=== PATIENT | male | born 1950 | race Caucasian/White ===

== ENCOUNTER 2016-05-07 11:31 | Emergency (ER) ==
--- NOTE | 2016-05-07 12:41 | PROVIDER DOCUMENTATION ---
HPI-Neurological Disorder - General Chief Complaint: General Adult Stated Complaint: FINGERS DRAWING UP Time Seen by Provider: 05/07/16 12:23 Source: patient Allergies/Adverse Reactions: Patient Allergies Allergy/AdvReac Type Severity Reaction Status Date / Time Penicillins AdvReac HIVES Verified 05/07/16 11:56 Home Medications: Home Medication List Medication Instructions Recorded Confirmed Last Taken Type Phenytoin [Dilantin] 400 mg PO DAILY 05/07/16 05/07/16 Unknown History - History of Present Illness-Neuro Nature of Presenting Problem: Pt is 65 y/o M presents to the ED with L hand drawing up. Pt denies injury or trauma. Pt states L hand will draw up intermittently 3 to 4 times a day. Pt states being on dialysis 4 months ago but does not know why he was told to stop. Headache Location: denies: frontal, temporal, occipital, parietal, global Severity: reports: mild Onset/Duration: reports: other (1 month) Timing: reports: still present, intermittent Context: reports: other (L hand drawing up) Character of Altered Mental Status: reports: N/A Any recent trauma/injury?: reports: none New weakness or altered sensation location:: reports: LUE (L hand drawing up) Gait Baseline: walks without assistance Associated Symptoms: reports: denies symptoms Similar Symptoms Previously?: Yes Recently seen or treated by another doctor?: No Review of Systems - Adult - REVIEW OF SYSTEMS - ADULT Constitutional: reports: no symptoms reported Eyes: reports: no symptoms reported Ears, Nose, Mouth & Throat: reports: no symptoms reported Cardiovascular: reports: no symptoms reported Respiratory: reports: no symptoms reported Gastrointestinal: reports: no symptoms reported Genitourinary: reports: no symptoms reported Musculoskeletal: reports: no symptoms reported Integumentary: reports: no symptoms reported Neurological: reports: no symptoms reported, other (L hand drawing up). denies : ataxia, dizziness/vertigo, headache/migraines, loss of balance, numbness, paresthesia, seizure, slurred speech, syncope, tremors Psychiatric: reports: no symptoms reported Endocrine: reports: no symptoms reported Hematologic/Lymphatic: reports: no symptoms reported Allergic/Immunologic: reports: no symptoms reported All Other Systems: Reviewed and Negative Past History - Adult - PAST MEDICAL HISTORY-ADULT Review of Records: reports: Nursing Assessment Review, Medications Reviewed, Social history reviewed & non-contributory. Major Childhood Illnesses: reports: denies history Cardiovascular: reports: HTN Respiratory: reports: denies history Gastrointestinal: reports: denies history Obstetrical/Gynecological: reports: denies history Genitourinary: reports: denies history Musculoskeletal: reports: denies history Neurological: reports: Seizures/Epilepsy Endocrine/Immune: reports: denies history Other Conditions: reports: denies history - PRIOR SURGERIES/PROCEDURES Surgical/Procedure History: reports: reviewed, not pertinent - IMMUNIZATION STATUS Childhood Immunizations: See Nurse Assessment Flu Vaccine: See Nurse Assessment - FAMILY HISTORY Family History: reviewed, not pertinent - SOCIAL HISTORY Smoking: denies Substance Use: denies Living Situation: family Physical Exam- Neurological - Physical Exam-Neuro Initial Vital Signs Reviewed: Yes General Appearance: appears well, alert, no apparent distress Eye Exam: bilateral eye: normal inspection, PERRL, EOMI HENMT: normocephalic/atraumatic, moist mucous membranes, normal ENT inspection, TMs normal, pharynx normal Head Injury: no evidence of injury Neck: non-tender, full range of motion, supple, normal inspection Respiratory: chest non-tender, lungs clear, normal breath sounds, no pleuratic chest pain, no respiratory distress, no accessory muscle use Cardiovascular: normal peripheral pulses, regular rate, rhythm, no edema, no gallop, no JVD, no murmur Abdominal Exam: normal bowel sounds, non tender, soft, no organomegaly, no pulsatile mass Lymphatic: no adenopathy Extremity: normal range of motion, non-tender, normal gait, normal inspection, no pedal edema, no calf tenderness, 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 Exam: normal hearing, normal speech, PERRL Coordination/Gait: normal finger to nose, normal gait Motor/Sensory: no motor deficit, no sensory deficit, no pronator drift Neurologic: grossly normal Integumentary: normal color, normal turgor, warm/dry Psych/Mental Status: normal mood/affect, oriented x 3 Progress - PLAN OF CARE/RESULTS Progress/Plan/Lab Results: Orders Category Date Time Status HEAD W/O CONTRAST [CT] Stat Exams 05/07/16 12:34 Ordered CBC WITH ELECTRONIC DIFF [HEME] Stat Lab 05/07/16 12:34 Ordered CMP [COMPREHENSIVE METABOLIC PANEL] [CHEM] Stat Lab 05/07/16 12:34 Ordered Vital Signs - 24 hr 05/07/16 11:51 Temperature 98 F Pulse Rate 65 Respiratory 18 Rate Blood Pressure 149/78 O2 Sat by Pulse 100 Oximetry Laboratory Tests 05/07/16 05/07/16 12:50 12:50 WBC 6.87 RBC 2.91 L Hgb 8.0 L Hct 24.6 L MCV 84.5 MCH 27.5 MCHC 32.5 L RDW Std Deviation 14.5 Plt Count 305 MPV 9.6 Immature Gran % (Auto) 0.3 Neut % (Auto) 66.4 Lymph % (Auto) 21.0 [place] % (Auto) 8.9 Eos % (Auto) 3.1 Baso % (Auto) 0.3 Immature Gran # (Auto) 0.02 Neut # (Auto) 4.57 Lymph # (Auto) 1.44 [place] # (Auto) 0.61 H Eos # (Auto) 0.21 Baso # (Auto) 0.02 Sodium 134 L Potassium 5.7 H Chloride 102 Carbon Dioxide 10 L Anion Gap 22 BUN 147 H Creatinine 9.3 H Estimated GFR/1.73 m2 6 BUN/Creatinine Ratio 14 Glucose 76 Calculated Osmolality 310 Calcium 6.4 L* Total Bilirubin 0.30 AST 10 ALT 10 Alkaline Phosphatase 181 H Total Protein 7.0 Albumin 3.9 Globulin 3.0 Albumin/Globulin Ratio 1.0 - CT/MRI 1 CT Study: Head Impression: Normal CT Results: no acute disease - CONSULTS/PCP/HOSPITALIST Notification #1 *Consult/PCP/Hospitalist*: Dr. Aquino Time Discussed: 14:37 (Dr. Aquino states consult with Dr. Rosales ) Reason/Comments: Dr. Heredia consulted with Dr. Aquino about Pt Consult Disposition: other #2 Consult: Dr. Rosales's nurse Time Discussed: 14:42 (Nurse states Pt took himself off of dialysis. ) Reason/Comments: Dr. Heredia consulted with Dr. Rosales's nurse about Pt Consult Disposition: other #3 Consult: Dr. Aquino Time Discussed: 14:48 (Dr. Aquino accepted admit ) Reason/Comments: Dr. Heredia consulted with Dr. Aquino about admit of Pt Consult Disposition: Admit Departure - Departure Time of Disposition Order: 13:56 DIAGNOSIS: Renal failure Disposition: AGAINST MEDICAL ADVICE 07 Certified Medical Emergency: Emergent Condition: Stable Additional Instructions: ED Follow Up Instructions: You have been treated by a care provider in the Emergency Department. These instructions are being provided to you so you can have an understanding of how to care for yourself upon discharge. Upon discharge from the Emergency Department, you are responsible for making arrangements for follow-up care by a physician of your choice. Take all prescribed medications as directed. Return to the Emergency Department immediately for any new or worsening symptoms. You may call the Physician Referral phone number at [phone] to obtain a list of Physicians who are taking new patients. Referrals: Nico Marmolejo MD [Primary Care Provider] - Attestation - Scribe Verification/Attestation Scribe:: Marion Farias Acting as Scribe for:: Osmel Heredia Scribe documention review:: This chart was documented by a scribe and accurately reflects the service the provider performed and the decisions made by the provider.
[2016-05-07 12:55] LABS: MANUAL DIFF NEEDED? NO
[2016-05-07 13:05] LABS: BASO% 0.3 % (0.0-0.8); EOS# 0.21 X1000 (0.0-0.7); EOS% 3.1 % (0.0-10.0); HEMATOCRIT 24.6 % (42.0-52.0); IMM GRAN# 0.02 X1000 (0.0-0.04); IMM GRAN% 0.3 % (0.0-0.5); LYMPH# 1.44 X1000 (1.2-3.4); MCH 27.5 PG (27-31); MCHC 32.5 g/dL (33-37); MCV 84.5 FL (81-99); MONO# 0.61 X1000 (0.11-0.59); MONO% 8.9 % (1.7-9.3); MPV 9.6 FL (7.4-10.4); NEUT% 66.4 % (42.2-75.2); PLT 305 X1000 (130-400); RBC 2.91 XMIL (4.7-6.1)
[2016-05-07 13:16] LABS: ALBUMIN 3.9 g/dL (3.5-5.0); POTASSIUM 5.7 mmol/L (3.5-5.1); TOTAL BILIRUBIN 0.3 mg/dL (0.20-1.00)
[2016-05-07 13:17] LABS: CALCIUM 6.4 mg/dL (8.8-10.2)
--- NOTE | 2016-05-07 13:22 | Diag Imaging Result Document ---
PROCEDURE NAME: HEAD W/O CONTRAST - 05/07/[address]: A CT dose reduction protocol was used. COMPARISON: None. FINDINGS: The ventricles and sulci are normal in size and contour. No intracranial mass or hemorrhage. There is some mild periventricular white matter chronic microvascular disease. The skull is intact. The sinuses, mastoids, and middle ears are clear. IMPRESSION: Mild cerebral chronic microvascular disease. Otherwise, no acute disease. [facility]
[2016-05-07 14:52] VITALS: BP 155/76
[2016-05-07] MEDS ORDERED: TYLENOL PO PRN (15:03)
[2016-05-07] MEDS ORDERED: ZOFRAN IV PRN (15:03)
[2016-05-07 15:33] LABS: CALCIUM 6.5 mg/dL (8.8-10.2)
== END 2016-05-07 15:31 | disposition left against medical advice (07) ==
LOC: P.ED 11:31
DX: N19 Unspecified kidney failure (principal); I10 Essential (primary) hypertension; R56.9 Unspecified convulsions; Z79.899 Other long term (current) drug therapy
CPT/HCPCS: 36415; 70450; 80053; 82310; 83970; 84100; 85025

== ENCOUNTER 2016-06-14 09:10 | Inpatient (IN) ==
[2016-06-14] MEDS ORDERED: NS 1,000 ML IV ONE (09:25)
--- NOTE | 2016-06-14 09:31 | EKG Report ---
Test Performed on : 06/14/2016 09:13:48 AM Test Reason : CHEST PAIN Blood Pressure : / mmHG Vent. Rate : 121 BPM Atrial Rate : 115 BPM P-R Int : 000 ms QRS Dur : 126 ms QT Int : 334 ms P-R-T Axes : 000 -24 070 degrees QTc Int : 474 ms Atrial fibrillation. with rapid ventricular response. Nonspecific intraventricular block Abnormal ECG When compared with ECG of 11-AUG-2011 23:22, Atrial fibrillation. has replaced Sinus rhythm. Vent. rate has increased BY 52 BPM Nonspecific T wave abnormality now evident in Lateral leads Unconfirmed Result
[2016-06-14 09:50] LABS: RBC 1.84 XMIL (4.7-6.1)
[2016-06-14 09:51] LABS: EOS# 0.02 X1000 (0.0-0.7); EOS% 0.1 % (0.0-10.0); HEMATOCRIT 15.4 % (42.0-52.0); IMM GRAN# 0.08 X1000 (0.0-0.04); IMM GRAN% 0.5 % (0.0-0.5); LYMPH# 0.94 X1000 (1.2-3.4); LYMPH% 5.5 % (20.5-51.1); MCH 26.6 PG (27-31); MCHC 31.8 g/dL (33-37); MCV 83.7 FL (81-99); MONO# 0.71 X1000 (0.11-0.59); MONO% 4.2 % (1.7-9.3); MPV 10.1 FL (7.4-10.4); NEUT% 89.7 % (42.2-75.2); PLT 304 X1000 (130-400)
[2016-06-14 09:52] LABS: HEMOGLOBIN 4.9 g/dL (14.0-18.0); MANUAL DIFF NEEDED? NO
[2016-06-14 10:16] LABS: PTT PL 54.9 Seconds (22.6-43.9)
[2016-06-14 10:17] LABS: INR 2.28 (0.86-1.15); PROTIME 25.2 Seconds (12.1-15.5)
[2016-06-14 10:17] LABS: ALBUMIN 1.7 g/dL (3.5-5.0); MAGNESIUM 1.2 mg/dL (1.5-2.7); POTASSIUM 4.2 mmol/L (3.5-5.1); TOTAL BILIRUBIN 0.2 mg/dL (0.20-1.00); TOTAL PROTEIN 3.9 g/dL (6.3-8.3)
[2016-06-14 10:18] LABS: CALCIUM 6.3 mg/dL (8.8-10.2)
[2016-06-14] MEDS ORDERED: TYLENOL PR ONE (10:37)
[2016-06-14] MEDS ORDERED: BENADRYL IV ONE (10:37)
[2016-06-14 10:53] LABS: AMYLASE 62 U/L (20-200); LIPASE 28 U/L (13-60)
--- NOTE | 2016-06-14 11:01 | PROVIDER DOCUMENTATION ---
This chart was entered by Alicia An Scribe, acting as scribe for Misbah Spencer MD. HPI-Chest Pain - General Chief Complaint: Chest Pain Stated Complaint: CHEST PAIN X 2 WEEKS Time Seen by Provider: 06/14/16 09:23 Source: patient Allergies/Adverse Reactions: Patient Allergies Allergy/AdvReac Type Severity Reaction Status Date / Time Penicillins AdvReac HIVES Verified 05/07/16 11:56 Home Medications: Home Medication List Medication Instructions Recorded Confirmed Last Taken Type Phenytoin [Dilantin] 400 mg PO DAILY 05/07/16 05/07/16 Unknown History - History of Present Illness-CP Nature of Presenting Problem: 65 yom presents to ed with complaint of chest pain. Family states he began vomiting,cough 2 weeks ago and could not get him to go to doctor. pt also complains of abd pain.denies fever Location: reports: central, abdomen Chest Pain Radiation: reports: no radiation Quality of Pain: reports: aching Severity in ED: mild Onset/Duration: other (2 weeks) Timing: still present Context/Activities at Onset: reports: none Modifying Factors: improves with: nothing Associated Symptoms: reports: abdominal pain Prior Chest Pain/Cardiac Workup: reports: no prior chest pain Similar Symptoms Previously?: No Recently Seen Here or By Another Healthcare Provider: No Review of Systems - Adult - REVIEW OF SYSTEMS - ADULT Constitutional: reports: fatique. denies: chills, fever Cardiovascular: reports: chest pain. denies: edema, syncope Respiratory: reports: cough, shortness of breath. denies: wheezing Gastrointestinal: reports: abdominal pain. denies: nausea, vomiting Past History - Adult - PAST MEDICAL HISTORY-ADULT Review of Records: reports: Old Records Reviewed, Nursing Assessment Review, Medications Reviewed Major Childhood Illnesses: reports: denies history Cardiovascular: reports: HTN Respiratory: reports: denies history Gastrointestinal: reports: denies history Obstetrical/Gynecological: reports: denies history Genitourinary: reports: denies history Musculoskeletal: reports: denies history Neurological: reports: Seizures/Epilepsy Endocrine/Immune: reports: Diabetes Other Conditions: reports: denies history - PRIOR SURGERIES/PROCEDURES Surgical/Procedure History: reports: reviewed, not pertinent - IMMUNIZATION STATUS Childhood Immunizations: See Nurse Assessment Flu Vaccine: See Nurse Assessment - FAMILY HISTORY Family History: reviewed, not pertinent - SOCIAL HISTORY Smoking: non-smoker Living Situation: family Physical Exam-General - PHYSICAL EXAM-ADULT Initial Vital Signs Reviewed: Yes - CONSTITUTIONAL General Appearance: appears well, alert, no apparent distress - EYES Eyes: PERRL/EOMI, pink conjunctivae, fundi clear, no AV nicking - HEAD, EARS, NOSE, MOUTH & THROAT HENMT: normocephalic/atraumatic, moist mucous membranes, normal ENT inspection, TMs normal, pharynx normal - NECK Neck: non-tender, full range of motion, supple, normal inspection - RESPIRATORY Respiratory: chest non-tender, lungs clear, normal breath sounds, no pleuratic chest pain, no respiratory distress, no accessory muscle use - CARDIOVASCULAR Cardiovascular: normal peripheral pulses, regular rate, rhythm, no edema, no gallop, no JVD, no murmur - GASTROINTESTINAL (ABDOMEN) Abdominal Exam: normal bowel sounds, non tender, soft, no organomegaly, no pulsatile mass - LYMPHATIC Lymphatic: no adenopathy - MUSCULOSKELETAL Back Exam: normal inspection, no CVA tenderness, no vertebral tenderness Extremity: normal range of motion, non-tender, normal gait, no pedal edema, no calf tenderness, normal capillary refill - SKIN Integumentary: normal color, normal turgor, warm/dry - 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, grossly normal, no motor/sensory deficits - PSYCHIATRIC Psych/Mental Status: normal mood/affect, normal thought content, normal thought process, oriented x 3 Progress - PLAN OF CARE/RESULTS Progress/Plan/Lab Results: Vital Signs - 8 hr 06/14/16 09:12 Temperature 97.2 F L Pulse Rate 111 H Respiratory Rate 32 H Blood Pressure 100/067 Laboratory Results - last 24 hr 06/14/16 06/14/16 06/14/16 06:33 09:33 09:33 WBC RBC Hgb Hct MCV MCH MCHC RDW Std Deviation Plt Count MPV Immature Gran % (Auto) Neut % (Auto) Lymph % (Auto) [place] % (Auto) Eos % (Auto) Baso % (Auto) Immature Gran # (Auto) Neut # (Auto) Lymph # (Auto) [place] # (Auto) Eos # (Auto) Baso # (Auto) Segmented Neutrophils PT 25.2 H INR 2.28 H APTT (Factor Assay) 54.9 H D-Dimer Sodium 130 L Potassium 4.2 Chloride 94 L Carbon Dioxide 4 L Anion Gap 32 BUN 115 H Creatinine 8.1 H Estimated GFR/1.73 m2 7 BUN/Creatinine Ratio 14 Glucose 114 H Calculated Osmolality 298 Calcium 6.3 L* Magnesium 1.2 L Total Bilirubin 0.20 AST 12 ALT 12 Alkaline Phosphatase 77 Creatine Kinase 76 Troponin T 0.033 Ljl-E-Nvjjqdghoaw Pept Total Protein 3.9 L Albumin 1.7 L Globulin 2.0 Albumin/Globulin Ratio 1.0 Amylase Lipase Total Phenytoin Blood Type Antibody Screen Crossmatch 06/14/16 06/14/16 06/14/16 09:33 09:33 09:33 WBC 16.96 H RBC 1.84 L Hgb 4.9 L* Hct 15.4 L MCV 83.7 MCH 26.6 L MCHC 31.8 L RDW Std Deviation 14.0 Plt Count 304 MPV 10.1 Immature Gran % (Auto) 0.5 Neut % (Auto) 89.7 H Lymph % (Auto) 5.5 L [place] % (Auto) 4.2 Eos % (Auto) 0.1 Baso % (Auto) 0.0 Immature Gran # (Auto) 0.08 H Neut # (Auto) 15.21 H Lymph # (Auto) 0.94 L [place] # (Auto) 0.71 H Eos # (Auto) 0.02 Baso # (Auto) 0.00 Segmented Neutrophils Not Reportable PT INR APTT (Factor Assay) D-Dimer Sodium Potassium Chloride Carbon Dioxide Anion Gap BUN Creatinine Estimated GFR/1.73 m2 BUN/Creatinine Ratio Glucose Calculated Osmolality Calcium Magnesium Total Bilirubin AST ALT Alkaline Phosphatase Creatine Kinase Troponin T Qve-S-Frstiuuogfz Pept 82545 H Total Protein Albumin Globulin Albumin/Globulin Ratio Amylase 62 Lipase 28 Total Phenytoin Blood Type Antibody Screen Crossmatch 06/14/16 06/14/16 06/14/16 09:33 09:33 09:53 WBC RBC Hgb Hct MCV MCH MCHC RDW Std Deviation Plt Count MPV Immature Gran % (Auto) Neut % (Auto) Lymph % (Auto) [place] % (Auto) Eos % (Auto) Baso % (Auto) Immature Gran # (Auto) Neut # (Auto) Lymph # (Auto) [place] # (Auto) Eos # (Auto) Baso # (Auto) Segmented Neutrophils PT INR APTT (Factor Assay) D-Dimer 6.76 H Sodium Potassium Chloride Carbon Dioxide Anion Gap BUN Creatinine Estimated GFR/1.73 m2 BUN/Creatinine Ratio Glucose Calculated Osmolality Calcium Magnesium Total Bilirubin AST ALT Alkaline Phosphatase Creatine Kinase Troponin T Axh-D-Wqohaehiziz Pept Total Protein Albumin Globulin Albumin/Globulin Ratio Amylase Lipase Total Phenytoin < 0.80 L Blood Type O POSITIVE Antibody Screen NEGATIVE Crossmatch See Detail Orders Category Date Time Status Cardiac Monitoring DIRECTED Care 06/14/16 09:20 Active Saline Loc NOW Care 06/14/16 09:20 Active CHEST-2 VIEWS [RAD] Stat Exams 06/14/16 09:20 Taken AMYLASE [CHEM] Stat Lab 06/14/16 09:33 Completed BLOOD CULTURE [BLDCUL] Stat Lab 06/14/16 09:25 Ordered CBC WITH ELECTRONIC DIFF [HEME] Stat Lab 06/14/16 09:33 Completed CK PROFILE [SP CHEM] Stat Lab 06/14/16 09:33 Completed COMPREHENSIVE METABOLIC PANEL [CHEM] Stat Lab 06/14/16 09:33 Completed D-DIMER PL [COAG] Stat Lab 06/14/16 09:53 Completed Dilantin [PHENYTOIN] [TDM] Stat Lab 06/14/16 09:33 Completed LIPASE [CHEM] Stat Lab 06/14/16 09:33 Completed MAGNESIUM [CHEM] Stat Lab 06/14/16 09:33 Completed PRBC [LRPC (RED CELLS)] [BBK] Stat Lab 06/14/16 09:33 Results PRO B-NATRIURETIC PEPTIDE Stat Lab 06/14/16 09:33 Completed [address]IME WITH INR PL [COAG] Stat Lab 06/14/16 06:[address] [COAG] Stat Lab 06/14/16 06:33 Completed Stool [C DIFF TOXIN PL] Stat Lab 06/14/16 09:56 Ordered TROPONIN T Stat Lab 06/14/16 09:33 Completed TYPE & SCREEN [BBK] Stat Lab 06/14/16 09:[address] W/POSS RFLX CULT [URINALYSIS] Stat Lab 06/14/16 09:25 Uncollected 0.9% Sodium Chloride Inj [Ns] 1,000 ml Med 06/14/16 09:25 Discontinued IV 999 mls/hr Acetaminophen [Tylenol] Med 06/14/16 10:37 Discontinued 650 mg AK NOW ONE Diphenhydramine [Benadryl] Med 06/14/16 10:37 Discontinued 25 mg IV NOW ONE EKG [EKG] Stat Ther 06/14/16 09:20 Draft Result Diagrams: 06/14/16 09:33 06/14/16 09:33 - REASSESSMENT Reassessment #1 Time Reassessed: 10:57 Status: unchanged (Pt has h/o RF, but refused dialysis. Saw Dr. Rosales before. Denies GI bleed, and no concerns for GI bleed regarding his anemia. Pt agreed to see Dr. Rosales again to discuss possible CANDELARIA.) - CONSULTS/PCP/HOSPITALIST Notification #1 *Consult/PCP/Hospitalist*: Dr. Bundy Time Discussed: 11:00 Reason/Comments: Will admit to Dr. Bundy Consult Disposition: Admit Departure - Departure Time of Disposition Decision: 10:59 DIAGNOSIS: Renal failure Anemia Qualifiers: Anemia type: unspecified type Qualified Code(s): D64.9 - Anemia, unspecified Disposition: ADMITTED INPATIENT 09 Certified Medical Emergency: Emergent Condition: Serious Referrals and Follow-Ups: None,PCP [Primary Care Provider] - - Critical Care Note Total Time (mins): 35 Critical Care Statement: This patient required my direct personal management to treat or rule out processes, the absence of which, could potentiallly result in sudden, clinically significant life or limb threatening deterioration. Attestation - Physician/ MAX Attestation Patient care was provided by Advanced Practice Provider:: Yes Advanced Practice Provider:: Misbah Spencer Advanced Practice Provider documentation review:: The Mid-level provider documentation, treatment plan and medical decision making was reviewed by the physician who agrees with all treatment and medical decision making by the P. This chart was documented by the indicated scribe, (Alicia An Scribe) and accurately reflects the services I performed and decisions made by me, Misbah Spencer MD, as attested by the provider's signature.
[2016-06-14] MEDS ORDERED: NS 500 ML ONE (11:25)
--- NOTE | 2016-06-14 11:43 | ED EKG INTERP ---
This chart was entered by Alicia An Scribe, acting as scribe for Misbah Spencer MD. EKG Interpretation - EKG Time of EKG reading by physician:: 09:13 EKG Read and Signed by:: Misbah Spencer EKG Interpretation (*Must complete 3 of following elements*): Abnormal Rate: 121 Rhythm: AFIB with rapid ventricular response Comments: nonspecific intraventricular block This chart was documented by the indicated scribe, (Alicia An Scribe) and accurately reflects the services I performed and decisions made by me, Misbah Spencer MD, as attested by the provider's signature.
--- NOTE | 2016-06-14 11:55 | Diag Imaging Result Document ---
PROCEDURE NAME: CHEST-2 VIEWS - 06/14/2016 CHEST X-RAY, 2 VIEWS: COMPARISON: None. FINDINGS: There is significant cardiomegaly. There is perhaps some pulmonary vascular congestion. No infiltrates or edema. There are trace pleural effusions. IMPRESSION: Cardiomegaly, pulmonary vascular congestion, trace effusions.
--- NOTE | 2016-06-14 13:42 | HISTORY AND PHYSICAL ---
CHIEF COMPLAINT: Pain all over. HISTORY OF PRESENT ILLNESS: Patient is a 65-year-old male who notes that he had been on hemodialysis in the past a couple of times. Has not taken dialysis in the last several months because he felt sick during one of the treatments and states that he has never gone back. Notes that he knows he is supposed to continue to stay on hemodialysis. He presents to the Emergency Department today noting that he feels terrible. He is hurting all over. States that he cannot get any relief, and therefore, he came to the hospital. Denies any bleeding in his stool or his urine. Denies any vomiting but states that he is nauseated. Notes that he is hurting all over, although is not able to delineate any particular place that is worse than the other. ALLERGIES: Penicillin. MEDICATIONS: Dilantin. PAST MEDICAL HISTORY: 1. Hemodialysis secondary to renal failure. 2. Anemia secondary to his renal failure. 3. Hypertension. 4. Epilepsy. 5. Diabetes. REVIEW OF SYSTEMS: Very difficult to obtain from Mr. Gupta. It does appear as though as he has had some chest pain although he now denies having chest pain. He states it is more epigastric area where he touches and nausea. Denies any fever or chills. Denies any urinary complications. Denies any diarrhea, constipation, melena. Denies any hematochezia. Denies headaches or blurred vision. States he has been tired, fatigued. He has not been feeling well. He has continued to decline overall. SOCIAL HISTORY: Patient lives at home. He does not smoke or drink. Dr. Marmolejo is his primary care physician. FAMILY HISTORY: Noncontributory. PHYSICAL EXAMINATION: VITAL SIGNS: Reviewed. Temperature 97.2, pulse 100 to 111, respiratory 32, blood pressure 100/67. GENERAL: Patient is awake, alert, male who is lying flat in the bed covered up with multiple blankets. Memory appears intact. Speech is somewhat slow and slightly slurred, although patient notes this is his baseline. HEENT: Normocephalic, atraumatic. NECK: Supple. CARDIOVASCULAR: Regular rate. CHEST: Relatively clear. Positive systolic ejection murmur 3/6. ABDOMEN: Soft, diffusely tender. No hepatosplenomegaly noted. No masses. EXTREMITIES: Moves all extremities. No edema. SKIN: No rashes, although he has multiple scars of various stages on his lower extremities that appear to be healing well. LABORATORY: Reviewed. D-dimer is 2.28, sodium 130, potassium 4.2, creatinine 8.6, magnesium 1.2, calcium 6. WBC is 16. Hemoglobin and hematocrit 4.9 and 15.4. ASSESSMENT: 1. Anemia of chronic kidney disease. Will type, cross, transfuse two units. 2. Chronic kidney disease. Patient likely will require further hemodialysis. 3. Hypocalcemia at 6.3, hypomagnesemia at 1.2. 4. Elevated D-dimer, likely secondary to his chronic kidney disease, although will check an ultrasound of his lower extremities. His INR currently is at 2. 5. Elevated BNP at 27,000. PLAN: Will admit patient to [facility] to allow Dr. Rosales's input. Will continue to follow. Further orders as needed. Will check an ultrasound of his lower extremities. He certainly will need Dr. Rosales's input regarding hemodialysis. Will replace his magnesium, start replacing his calcium. Will recheck. Transfuse two units and recheck this as well. Further orders as needed. cc: Eliot Bundy MD
[2016-06-14] MEDS ORDERED: MAGNESIUM SULFATE 2 GM/S.W.I. 2 GM/50 ML IVPB IV ONE (14:20)
[2016-06-14 14:55] LABS: ALLEN TEST YES; BLOOD TYPE ARTERIAL; DRAW SITE R RADIAL; METHB 1.3 % (0.0-1.5); O2(CT) 10.7 mL/dL (15.0-23.0); PO2(98.6) 123 mmHg (60-100); SAMPLE BLOOD; SAO2 100.7 % (95.0-100.0); THB 7.6 g/dL (11.5-17.4)
[2016-06-14 14:56] LABS: MODALITY CANNULA
[2016-06-14 14:58] LABS: PCO2(98.6) 19 mmHg (35-45); pH(98.6) 7.13 (7.35-7.45)
[2016-06-14] MEDS ORDERED: CALCIUM GLUCONATE 2 GM in NS 100 ML IV ONE (15:00)
[2016-06-14] MEDS ORDERED: TYLENOL PO PRN (16:19)
[2016-06-14] MEDS ORDERED: APRESOLINE IV PRN (16:22)
[2016-06-14] MEDS: MORPHINE IV PRN ×2 (17:02→21:12)
--- NOTE | 2016-06-14 19:44 | CONSULTATION ---
DATE OF CONSULTATION: 06/14/2016 CHIEF COMPLAINT: Pain all over. REASON FOR CONSULTATION: Acute kidney injury on previous ESRD, noncompliance, with severe anemia. CONSULTING PHYSICIAN: Eliot Bundy MD. HISTORY OF PRESENT ILLNESS: Mr. Gupta is a 65-year-old, white male who is known to our outpatient services, who has an AV fistula to the left upper forearm. He has been on dialysis multiple times and had taken himself off. He has not been to dialysis in approximately 4-6 months. Patient states that he is feeling sick. He started with chest pain, it is radiating up into his shoulders. He does ache all over. He has had nausea and occasional emesis. His hemoglobin on admission to the ER it was found to be 4.9, his creatinine is 8.6, with a BUN of 115. Patient states that he has not had any hematochezia, no hemoptysis, no melena. He denies any increased swelling, occasional shortness of breath, severe fatigue. PAST MEDICAL HISTORY: End-stage renal disease. Patient is due for hemodialysis and has not been compliant in going back for his treatments. He had a fistula to the left upper arm. He has anemia secondary to his ESRD, hypertension, epilepsy, diabetes mellitus type 2. He has a history of osteodystrophy secondary to chronic disease. PREVIOUS SURGICAL HISTORY: Left upper arm fistula. SOCIAL HISTORY: He is . He lives at home with his spouse. He states he does not drink or smoke. No illicit drug use. Dr. Marmolejo is his primary care physician. FAMILY HISTORY: Noncontributory with renal insufficiency. CURRENT ALLERGIES: To penicillin. HOME MEDICATIONS: Dilantin. REVIEW OF SYSTEMS: Review of systems x 10 with pertinent positives listed above in the HPI. MOST RECENT VITAL SIGNS: Temperature 97.9 degrees, blood pressure 158/88, heart rate 105, respirations are 24. He is on 2 L nasal cannula. Last recorded saturation 100% . He has had 350 in, he has had 0 recorded out. Patient states that he still urinates at home. LABS: Sodium of 130, potassium 4.2, chloride 94, CO2 4, BUN 115, creatinine 8.1 , glucose 114, calcium 6.3, albumin 1.7. He has a corrected calcium of 8.14. Magnesium 1.2, proBNP 27,154, amylase 62, lipase 28, white count 16.96, hemoglobin 4.9, hematocrit 15.4, platelet count 304,000, his PT is 25.2, with an INR of 2.28, PTT 54.9 with a D-dimer 6.76. ABGs on admission: pH 7.13, CO2 19, PO2 123, bicarbonate 8.6. He has a base excess of 21 with a lactate of 0.70 on 3 L nasal cannula. His Dilantin level is less than 0.80. PHYSICAL EXAMINATION: General: This is a 65-year-old white male. He appears chronically ill. He is in mild distress. He is shivering and states he is in chronic pain. Skin : Warm and dry. HEENT: Normocephalic, atraumatic. Conjunctiva is pale. He has TISH mostly constricted at this time. Neck: Supple. Trachea midline. No JVD. Cardiovascular: Regular rate and rhythm. He is tachycardic on the monitor. He has a systolic murmur present. No gallop. Lungs: Clear to auscultation anteriorly. Equal excursion on O2. Abdomen: Soft, nontender. Positive bowel sounds. Genitourinary: Not inspected. Patient has not voided at this time. Extremities: No edema. No clubbing or cyanosis. Multiple scars noted with different stages of healing. Neurological: He is alert and oriented x3. ASSESSMENT AND PLAN: 1. End-stage renal disease. The patient has been noncompliant in his dialysis treatment. He has not been there in several months for treatment. He is exhibiting some uremic symptoms. His fistula has a palpable thrill. We have spoken to the patient in regard to restarting his hemodialysis. He would like to talk to Dr. Rosales at this time. He is aware that he does need further hemodialysis. His states that she has tried to get him to go and he has refused. 2. Electrolytes. Patient has hypocalcemia and hypomagnesium though corrected calcium is in the 8 range. 3. Acid-base balance. The patient has severely metabolic acidosis secondary to #1. After his blood transfusions we will start him on a L of D5 W with 3 amps of sodium bicarbonate at 100 mL an hour for correction if patient is unwilling to start hemodialysis. 4. Elevated D-dimer more than likely secondary to his end-stage renal disease with noncompliance. INR is at 2. 5. Severe pain all over. Again this may be uremic symptoms with associated with his nausea. 6. Anemia. The patient is grossly anemic. They are giving him 2 units of packed red blood cells at this time with an evaluation post treatment. Seizure activity. Patient has a low level of Dilantin. This is being followed by the Primary Care team. I would like to thank you for allowing us to follow with this patient. Sincerely, Data reviewed, discussed with Fuad Castro on 06/14/16. I agree with the above assessment and plan of care. rg Dictated by RACHID Pierre for Son Rosales MD cc: RACHID Pierre MD [facility]
[2016-06-14 20:19] LABS: ACETAMINOPHEN < 1.2 ug/mL (10-30); HDL 21 mg/dL (35-55); LDL 49 mg/dL; TRIGLYCERIDES 91 mg/dL (39-160); VLDL 18 mg/dL
[2016-06-14 20:28] LABS: FREE T4 0.95 ng/dL (0.93-1.70)
[2016-06-14 20:45] LABS: ACETONE SERUM SMALL (NEGATIVE)
[2016-06-14] MEDS: COLACE PO SCH ×2 (21:41→23:35)
[2016-06-14] MEDS: HUMULIN R SUBQ SCH (21:41)
[2016-06-14 23:32] LABS: HEMATOCRIT 29.7 % (42.0-52.0); HEMOGLOBIN 10.2 g/dL (14.0-18.0); MCH 28.4 PG (27-31); MCHC 34.3 g/dL (33-37); MCV 82.7 FL (81-99); MPV 11.3 FL (7.4-10.4); RBC 3.59 XMIL (4.7-6.1)
[2016-06-15] MEDS: ZOFRAN IV PRN ×3 (00:28→22:35)
[2016-06-15] MEDS: MORPHINE IV PRN ×2 (01:37→07:48)
[2016-06-15] MEDS: SODIUM BICARBONATE 8.4% 150 MEQ in D5W 1,000 ML IV SCH ×4 (05:39→22:35)
[2016-06-15] MEDS: HUMULIN R SUBQ SCH ×4 (06:26→22:35)
[2016-06-15] MEDS ORDERED: TIGHT: 0.2 ML/HR MISC PRN (06:57)
[2016-06-15] MEDS ORDERED: NS 2,000 ML MISC PRN (06:57)
[2016-06-15] MEDS ORDERED: HEPARIN IV PRN (06:57)
[2016-06-15 07:26] LABS: MCH 28.1 PG (27-31); MCHC 33.3 g/dL (33-37); MCV 84.4 FL (81-99); MPV 11.1 FL (7.4-10.4); RBC 3.91 XMIL (4.7-6.1)
[2016-06-15 07:49] LABS: ALBUMIN 2.9 g/dL (3.5-5.0); CALCIUM 7.5 mg/dL (8.8-10.2); MAGNESIUM 2.6 mg/dL (1.5-2.7); TOTAL BILIRUBIN 0.48 mg/dL (0.20-1.00); TOTAL PROTEIN 6.9 g/dL (6.3-8.3)
[2016-06-15 08:06] LABS: POTASSIUM 6.3 mmol/L (3.5-5.1)
--- NOTE | 2016-06-15 09:45 | PROGRESS NOTE ---
DATE: 06/15/2016 SUBJECTIVE: He is feeling better today. No, of breath, nausea or vomiting. OBJECTIVE: Vital Signs: Blood pressure 161/81, heart rate 93, respirations 21, afebrile. Generally: He is a middle-aged man, chronically ill, in no distress. Skin: Warm and dry with several vesicles on the neck and on the feet. The ones on the feet seem older than the ones on the neck. They have an erythematous base and purulent pustule. Conjunctivae are pink. Pupils are equal. Oropharynx is moist. Neck: Neck veins are not distended. Heart: Regular. No rubs. Lungs: Have equal breath sounds. No crackles. Abdomen: Soft, nontender. Bowel sounds present. Extremities: Have no edema, clubbing, or cyanosis. LABORATORY DATA: Sodium 134, potassium 6.3, chloride 91, bicarbonate 6, BUN 199, creatinine 12.6. Hemoglobin 11.0. IMPRESSION: 1. Uremia. He states he is ready to restart dialysis. He has taken himself off dialysis twice in the past. He complains of cramps and other constitutional symptoms during his treatment. But he does state that he wants now to restart. We will begin with a short 2-hour treatment with low blood flow of 200-250 mL/minute and dialyze him today and repeat tomorrow. 2. Hyperkalemia; 2K bath. 3. Metabolic acidosis; 37 bicarbonate today. 4. Profound anemia. Better following transfusion. We will dose with erythropoietin. cc: Son Rosales MD
[2016-06-15] MEDS: EPOGEN SUBQ SCH (10:02)
--- NOTE | 2016-06-15 10:02 | Extremity Venous Study ---
PROCEDURE NAME: Venous U/S Bilateral Legs - 06/14/2016 STUDY: Bilateral lower extremity venous duplex and color flow imaging. EQUIPMENT: [employer] Vivid E9 ultrasound system with a 9LD transducer. INDICATION: Elevated D-dimer. REQUESTING PHYSICIAN: Eliot Bundy MD ELECTRONICS TECHNOLOGY INSTRUCTOR: Kathya. FINDINGS: Images of the bilateral lower extremity venous system were obtained in both sagittal and transverse planes. Doppler was used to evaluate veins for spontaneity, phasicity, respiratory excursion, and digital augmentation. RESULTS: Normal venous compression, normal venous flow. No obvious superficial or deep venous thrombosis noted. INTERPRETATION: Essentially normal bilateral lower extremity venous study. cc: MD Eliot Dawson MD
[2016-06-15 10:16] LABS: HEPATITIS PROFILE ACUTE SEE COMMENTS
[2016-06-15] MEDS ORDERED: NS 2,000 ML ONE (11:48)
[2016-06-15] MEDS ORDERED: HEPARIN ONE (11:48)
--- NOTE | 2016-06-15 12:00 | PROGRESS NOTE ---
DATE: 06/15/2016 SUBJECTIVE: The patient is feeling better today. He is still complaining of having generalized pain. No fever, no chills. No nausea, vomiting, or diarrhea. Just a little confused. OBJECTIVE: Vital signs: Blood pressure 161/81, pulse of 93, respirations 21, temperature of 97.9 degrees, satting 100% on 2 L nasal cannula. General appearance: Thin, white male in no acute distress. HEENT: Anicteric sclerae. Clear conjunctivae. Neck: Supple. No JVD. No bruit. Cardiovascular: S1, S2. Normal rate and rhythm. No murmur, rubs, or gallops. Pulmonary: Crackles bilaterally. GI: Soft, nontender, nondistended. Normoactive bowel sounds. Musculoskeletal: No clubbing, cyanosis, or edema. LABORATORY: His white count was 28.64, hemoglobin 11.0, hematocrit 33.0, platelets of 350. Chemistry: Sodium 134, potassium 6.3, chloride 91, bicarbonate 6, BUN 199, creatinine 12.6, glucose of 138. ASSESSMENT AND PLAN: This is a 65-year-old white male with a history of end-stage renal disease noncompliant to his dialysis and stopped going to dialysis for several months. He presented with generalized weakness and uremia. He was found to have a hemoglobin and hematocrit of less than 5 and 16. 1. Noncompliant to medical treatment. Education provided. 2. End-stage renal disease. The patient is uremic. Nephrology will consult. The patient was taken down for dialysis today. His arteriovenous fistula seems to be functional. 3. Anemia probably secondary to chronic disease. Also, concerning for acute blood loss. Nephrology and gastroenterology were consulted. The patient had received a total of 8 units packed red blood cells. His hemoglobin and hematocrit was 11 and 33. No evidence of bleeding. 4. History of diabetes. The patient lost a lot of weight. He did not need any treatment for some time. We will continue to monitor the patient for now. We will recheck his lab work in the morning. 5. Hypertension. Will we watch his blood pressure for now. Once he gets his dialysis, it probably will be trending down. Will add medication if needed. 6. Deep vein thrombosis prophylaxis. Put the patient on sequential compression devices for now since he was very anemic when he came in. 7. Code status: The patient is a full code.
[2016-06-15] MEDS ORDERED: DIPRIVAN 1% ONE (12:38)
[2016-06-15] MEDS ORDERED: XYLOCAINE-MPF 2% ONE (12:50)
[2016-06-15] MEDS ORDERED: PIGGYBACK SET 7393 ONE (12:50)
[2016-06-15] MEDS ORDERED: 1/2 NS 500 ML ONE (12:50)
[2016-06-15] MEDS ORDERED: EXTENSION SET 32 IN 4522 ONE (12:50)
[2016-06-15 13:47] LABS: HEMATOCRIT 31.6 % (42.0-52.0); HEMOGLOBIN 10.7 g/dL (14.0-18.0); MCH 28.5 PG (27-31); MCHC 33.9 g/dL (33-37); MCV 84.3 FL (81-99); MPV 10.6 FL (7.4-10.4); RBC 3.75 XMIL (4.7-6.1)
--- NOTE | 2016-06-15 15:52 | OPERATIVE NOTE ---
PROCEDURE DATE: 06/15/2016 PROCEDURE: Esophagogastroduodenoscopy. PREOPERATIVE DIAGNOSES: Nausea, vomiting, anemia. POSTOPERATIVE DIAGNOSES: Hemorrhagic gastritis likely secondary to uremia. DESCRIPTION OF PROCEDURE: After informed consent and adequate intravenous sedation, the scope was introduced to the esophagus. No varices. No Radha-Alvarado tear. Cardia, fundus, body, carefully examined. There is small amount of coffee-grounds present. The entire lining shows hemorrhagic gastritis. The duodenum is normal. The scope was withdrawn. The patient tolerated the procedure without any immediate complications. cc: Ariane Boone MD
[2016-06-15] MEDS: NORCO-5 PO PRN (17:09)
[2016-06-15] MEDS: COLACE PO SCH (22:36)
[2016-06-16] MEDS: ZOFRAN IV PRN ×4 (02:22→18:38)
[2016-06-16] MEDS: HUMULIN R SUBQ SCH ×4 (06:16→21:08)
[2016-06-16 07:46] LABS: POTASSIUM 3.9 mmol/L (3.5-5.1)
[2016-06-16 07:56] LABS: CALCIUM 7.1 mg/dL (8.8-10.2)
[2016-06-16] MEDS ORDERED: HEPARIN IV PRN (08:48)
[2016-06-16] MEDS ORDERED: NS 2,000 ML MISC PRN (08:48)
[2016-06-16] MEDS ORDERED: TIGHT: 0.2 ML/HR MISC PRN (08:48)
[2016-06-16] MEDS ORDERED: HEPARIN ONE (09:21)
[2016-06-16] MEDS ORDERED: NS 2,000 ML ONE (09:22)
[2016-06-16] MEDS: LOPRESSOR PO SCH ×2 (09:44→21:08)
--- NOTE | 2016-06-16 12:43 | PROGRESS NOTE ---
DATE: 06/16/2016 SUBJECTIVE: The patient complained of having nausea, unable to eat, did not have any fever or chills. Did not have any bowel movements. OBJECTIVE: Vital signs: Blood pressure 164/95, pulse 102-120, respirations 20, temperature 97.6 degrees, saturation of 100% on 2 L. General Appearance: A thin white male in mild distress due to nausea. HEENT: Anicteric. Clear conjunctivae. Neck: Supple. No JVD. No bruits. Cardiovascular: S1, S2. Normal rate and rhythm. No murmur, rubs, or gallops. Pulmonary: Clear to auscultation bilaterally. Gastrointestinal: Abdomen soft, nontender, nondistended. Normoactive bowel sounds. Musculoskeletal: There is 1+ pitting edema. LABORATORY DATA: White count 22.99, hemoglobin 10.7, hematocrit of 31.6, and platelet of 332,000. Chemistries: Sodium 135, potassium 3.9, chloride 86, bicarb 17, BUN 135, creatinine 9.3, glucose of 224. ASSESSMENT/PLAN: A 65-year-old white male, admitted to the hospital for uremia and end-stage renal disease, weight loss. 1. Uremia, the patient was supposed to be on dialysis but has not been doing it for several months. He just stopped going. Presented with highly elevated creatinine and BUN. The patient has been getting dialysis for a 2nd day. He is still complaining of having abdominal discomfort and unable to eat and nausea. His EGD showed significant hemorrhagic gastritis consistent was uremia. Hopefully with dialysis, that will improve. We will get a KUB to make sure he does have any obstructions as he has not had any bowel movements, although his bowel sounds are good. 2. Anemia. The patient received 4 units so far. His hemoglobin and hematocrit when he came in was less than 5 and 15. Hemoglobin and hematocrit has remained stable. 3. Diabetes type 2. We will put the patient on sliding scale insulin. 4. Tachycardia. Start the patient on Lopressor today, 25 twice a day. 5. We will keep the patient on a renal diet for now. CODE STATUS: The patient is a full code.
[2016-06-16] MEDS: SODIUM BICARBONATE 8.4% 150 MEQ in D5W 1,000 ML IV SCH ×3 (13:30→17:36)
--- NOTE | 2016-06-16 13:34 | PROGRESS NOTE ---
DATE: 06/16/2016 SUBJECTIVE: Patient is seen while on dialysis. He has had some hypertension earlier today, but it appears controlled at this time. Had some nausea treated with Zofran. OBJECTIVE: Vital signs: Temperature 97.5, pulse 130, respiratory rate 18, blood pressure 129/77, intake 1.3 liters, output 2 liters. General: Middle-aged gentleman resting in bed. No acute distress. HEENT: Normocephalic, atraumatic. Oral mucosa moist. Neck: Supple. No JVD. Cardiovascular: Regular rate and rhythm. No murmur or gallop. Pulmonary: Equal excursion. He is clear. On room air. Abdomen: Soft, positive bowel sounds. Genitourinary: Not inspected. Extremities: No clubbing, cyanosis, or edema. Integumentary: Some rash was previously noted. LAB DATA: Sodium 135, potassium 3.9, CO2 17, BUN 135, creatinine 9.3, calcium 7.1. ASSESSMENT AND PLAN: Uremia. Patient restarted dialysis yesterday. He underwent 2 hours of treatment on low flow without difficulty. We will plan to extend the length of treatment today to a full treatment, but we will continue low flow secondary to his extremely elevated BUN. Patient understands this and is willing to comply with therapy. Likely allow him to rest on Saturday and plan to restart a normal schedule this coming Saturday. Dictated by RACHID Segundo for Son Rosales MD Data reviewed, discussed with Marquita on 06/16/16. I agree with the above assessment and plan of care. cc: Son Rosales MD [facility]
--- NOTE | 2016-06-16 16:52 | Diag Imaging Result Document ---
PROCEDURE NAME: KURichard ABDOMEN - 06/16/2016 SUPINE PORTABLE ABDOMEN, SINGLE VIEW: COMPARISON: 12/01/2013. FINDINGS: No bowel obstruction. No organomegaly. No other inflammation obtained due to the technique and patient's body habitus. IMPRESSION: Negative exam.
[2016-06-16] MEDS: COLACE PO SCH (21:08)
[2016-06-16] MEDS: PHENERGAN IV PRN (22:26)
[2016-06-16] MEDS: SODIUM CHLORIDE 0.9% INJ PRN (22:26)
[2016-06-16] MEDS ORDERED: CARDIZEM IV ONE (23:12)
[2016-06-17] MEDS ORDERED: CARDIZEM PO SCH (02:00)
[2016-06-17] MEDS ORDERED: CARDIZEM 100 MG/NS 100 MG/100 ML IVPB IV SCH (02:04)
[2016-06-17] MEDS: SODIUM BICARBONATE 8.4% 150 MEQ in D5W 1,000 ML IV SCH ×2 (04:12→16:41)
[2016-06-17] MEDS ORDERED: LANOXIN IV ONE (05:08)
[2016-06-17] MEDS: HUMULIN R SUBQ SCH ×4 (06:17→20:14)
[2016-06-17 07:40] LABS: EOS# 0.15 X1000 (0.0-0.7); EOS% 1.2 % (0.0-10.0); HEMATOCRIT 30.1 % (42.0-52.0); HEMOGLOBIN 10.4 g/dL (14.0-18.0); IMM GRAN# 0.08 X1000 (0.0-0.04); IMM GRAN% 0.6 % (0.0-0.5); LYMPH# 0.76 X1000 (1.2-3.4); LYMPH% 5.9 % (20.5-51.1); MANUAL DIFF NEEDED? YES; MCH 28.4 PG (27-31); MCHC 34.6 g/dL (33-37); MCV 82.2 FL (81-99); MONO# 1.23 X1000 (0.11-0.59); MONO% 9.5 % (1.7-9.3); MPV 10.8 FL (7.4-10.4); NEUT% 82.8 % (42.2-75.2); PLT 333 X1000 (130-400); RBC 3.66 XMIL (4.7-6.1)
[2016-06-17 08:04] LABS: CALCIUM 7.2 mg/dL (8.8-10.2); POTASSIUM 3.4 mmol/L (3.5-5.1)
[2016-06-17] MEDS: LOPRESSOR PO SCH ×2 (08:18→20:12)
[2016-06-17] MEDS: ZOFRAN IV PRN ×2 (08:20→20:18)
[2016-06-17 08:21] LABS: BANDS 5 % (0-1); LYMPHS 6 % (21-51); MONO 9 % (1-9)
[2016-06-17] MEDS ORDERED: LANOXIN IV SCH (09:00)
[2016-06-17] MEDS: CARDIZEM 100 MG/NS 100 MG/100 ML IVPB IV SCH ×3 (09:29→20:11)
[2016-06-17] MEDS ORDERED: LOPRESSOR PO SCH (12:01)
[2016-06-17] MEDS ORDERED: HEPARIN 25,000 UNITS/D5W 25,000 UNIT/250 ML IV.SOLN IV SCH (12:15)
[2016-06-17] MEDS ORDERED: MISC. PHARMACY COMMUNICATION SCH (12:30)
[2016-06-17] MEDS ORDERED: HEPARIN 25,000 UNIT in NS 250 ML IV SCH ×2 (13:00→23:23)
[2016-06-17] MEDS: CARDIZEM PO SCH ×2 (15:13→20:11)
--- NOTE | 2016-06-17 15:36 | PROGRESS NOTE ---
DATE: 06/17/2016 SUBJECTIVE: The patient is feeling better today. He is eating a little more today. Still in A- flutter. Although the patient is symptomatic, her were in the 130s and 140s. OBJECTIVE: Vital signs: Blood pressure of 122/86, pulse of 146, respirations 20, temperature 98.0 degrees, saturation of 93% on 2 L. General appearance: Cachectic white male, in no acute distress. Appears to be comfortable even though heart rate is in the 140s. HEENT: Anicteric clear. Clear conjunctivae. Neck: Supple. No JVD. No bruit. Cardiovascular: Tachycardic, irregular rate and rhythm. Extremities: No clubbing cyanosis or edema. Abdomen: Soft nontender, nondistended. Normoactive bowel sounds. Musculoskeletal: No clubbing, cyanosis, or edema. Just very thin and wasted. White count of 12.9, hemoglobin 10.4, hematocrit of 30.1, platelets of 333,000. Chemistry: Sodium 135, potassium of 3.5, chloride 88, bicarb 25, BUN 89, creatinine 7.0, glucose 179. Troponins is elevated but stable. X-ray of his abdomen was negative for any acute process. ASSESSMENT AND PLAN: This is a 65-year-old white male with end-stage renal disease, noncompliant to his dialysis. Has not been that dialyzed for months, admitted for uremia. 1. Uremia. Patient has every sign symptoms of uremia including hemorrhagic gastritis. 2. Confusion. He is doing better since we put him back on his dialysis. Diet is much improved. 3. Atrial flutter. Cardiology is following. He is on heparin drip. I started him on p.o. diltiazem at 60 q.6 and at the same time increased his Lopressor up to 50 mg 3 times a day instead of 25 4 times a day. 4. Diabetes type 2. Sliding scale insulin. 5. Deep vein thrombosis prophylaxis. The patient is on heparin drip. 6. Code status. The patient is a full code. 7. Noncompliant to medication. Education provided. 8. Protein calorie deficiency. Encourage p.o. intake.
--- NOTE | 2016-06-17 18:54 | CONSULTATION ---
DATE OF CONSULTATION: 06/17/2016 IMPRESSION: 1. Atrial fibrillation and now atrial flutter with rapid ventricular rate. Duration unknown. Patient unaware of his arrhythmia. 2. End-stage renal disease requiring hemodialysis. 3. Hypertension. 4. Diabetes mellitus. 5. Gross medical noncompliance. RECOMMENDATIONS: 1. Continue intravenous Cardizem for rate control. Add metoprolol and titrate as needed. 2. Anticoagulate with intravenous heparin. Consider initiation of warfarin. 3. Echocardiography/Doppler study. HISTORY: This 65-year-old white male with past history of end-stage renal disease, hypertension and diabetes mellitus was admitted with nausea and malaise. He had stopped going to dialysis which has been recently initiated a few months ago. He was admitted and has been undergoing hemodialysis. He developed tachycardia and was found to be in atrial flutter with rapid ventricular rate. He was in atrial fibrillation with controlled rate on admission. He is unaware of his arrhythmia. He is a very poor historian and knows very little details about his health history. There has been no chest pain or dyspnea. There is no history of syncope. PAST MEDICAL HISTORY: 1. End-stage renal disease requiring hemodialysis. 2. Hypertension. 3. Diabetes mellitus. 4. Seizure disorder. ALLERGIC: Allergic or intolerant to penicillin. MEDICATION PRIOR TO ADMISSION: Include Dilantin. SOCIAL HISTORY: He lives at home. He is . He does not smoke or use alcohol. FAMILY HISTORY: Negative for premature coronary disease. REVIEW OF SYSTEMS: Pulmonary: Negative. Gastrointestinal: With treatment for nausea. Constitutional: Noteworthy for malaise. Remainder review of systems negative/noncontributory beyond history present illness with 14 total systems reviewed. PHYSICAL EXAMINATION: General: This is a middle-aged male in no distress. Vital Signs: As recorded. Noteworthy for heart rate of 150 and regular with ECG monitor showing atrial flutter with rapid ventricular rate. HEENT Exam: Extraocular movements intact. Mucous membranes moist. Neck: Supple without JV distention. There are no carotid bruits. Chest: Clear to auscultation. Cardiac Exam: Reveals a regular tachycardia without appreciable murmur or gallop. Abdomen: Soft, nontender. Bowel sounds are normal. Extremities: Without edema. Neurologic Exam: Reveals him to be alert and responsive. Speech is fluent. Moves all 4 extremities equally well. DIAGNOSTIC DATA: ECG on admission shows atrial fibrillation. Repeat ECG now shows atrial flutter with rapid ventricular rate. Lab data is remarkable for normal TSH. cc: Jeff Martinez MD
[2016-06-17] MEDS: COLACE PO SCH (20:11)
--- NOTE | 2016-06-17 21:22 | ECHO REPORT ---
ORDER DATE: 06/17/2016 ECHOCARDIOGRAM: MEASUREMENTS: Left ventricular end-diastolic diameter 5.1, end-systolic diameter 4.4, posterior wall thickness 1.8, septal thickness 1.9, left atrium 5.1, aortic root 3.4. SUMMARY: 1. Fair quality study. 2. Trileaflet aortic valve is sclerotic but opens adequately on 2-dimensional images. Peak gradient across the aortic valve is 10 mmHg. There is trace aortic regurgitation. Moderate mitral annular calcification is demonstrated with sclerotic thickening of posterior mitral leaflet. There is trace to mild mitral regurgitation. Tricuspid valve is without structural abnormality with mild tricuspid regurgitation. Pulmonic valve is without structural abnormality with trace pulmonic regurgitation. Estimated systolic PA pressure by Doppler is 50 mmHg. The aortic root is normal size. 3. There is mild dilatation of proximal ascending aorta. Three normal left ventricular chamber size with moderate concentric left hypertrophy is demonstrated. Assessment of left ventricular systolic function is difficult given that patient was in atrial flutter with rapid ventricular rate of 146 beats per minute during the study. Estimated left ventricular ejection fraction is approximately 30% but is likely underestimated in setting of significant tachycardia. Left atrium is moderately enlarged. Right atrium and right ventricle are of normal size with preserved right ventricular systolic function. 4. Small posterior pericardial effusion is demonstrated. 5. Appearance of inferior vena cava suggests elevated central venous pressure. CONCLUSION: 1. Aortic valve sclerosis without stenosis with trace aortic regurgitation. 2. Mild mitral regurgitation. 3. Mild tricuspid regurgitation with moderate pulmonary hypertension by Doppler. 4. Moderate concentric left hypertrophy. 5. Assessment of left ventricular systolic function limited by atrial flutter with rapid ventricular rate during study. Estimated left ventricular ejection fraction of 30% but probably underestimated in setting of significant tachycardia. 6. Moderate left atrial enlargement. 7. Small posterior pericardial effusion. 8. Elevated central venous pressure is suggested. cc: Jeff Martinez MD
[2016-06-17] MEDS ORDERED: HEPARIN IV ONE (23:17)
[2016-06-17] MEDS: PHENERGAN IV PRN (23:31)
[2016-06-17] MEDS: SODIUM CHLORIDE 0.9% INJ PRN (23:32)
[2016-06-18] MEDS: CARDIZEM 100 MG/NS 100 MG/100 ML IVPB IV SCH ×5 (01:31→22:47)
[2016-06-18] MEDS: SODIUM BICARBONATE 8.4% 150 MEQ in D5W 1,000 ML IV SCH ×2 (01:31→14:05)
[2016-06-18] MEDS: CARDIZEM PO SCH ×4 (02:26→22:07)
[2016-06-18] MEDS: LOPRESSOR PO SCH ×3 (04:52→22:07)
--- NOTE | 2016-06-18 05:28 | EKG Report ---
Test Performed on : 06/17/2016 02:28:06 AM Test Reason : Tachycardia Blood Pressure : / mmHG Vent. Rate : 151 BPM Atrial Rate : 302 BPM P-R Int : 000 ms QRS Dur : 122 ms QT Int : 282 ms P-R-T Axes : 083 -29 107 degrees QTc Int : 446 ms Atrial flutter. with 2:1 AV conduction. Nonspecific intraventricular conduction delay ST elevation, consider lateral injury or acute infarct ACUTE MO / STEMI Abnormal ECG When compared with ECG of 16-JUN-2016 22:31, (Unconfirmed) No significant change was found Confirmed by Hayden GASTELUM, Sherman Sharma ([id number]) on 06/18/2016 6:43:25 PM
[2016-06-18 05:30] LABS: MANUAL DIFF NEEDED? NO
[2016-06-18 05:34] LABS: BASO% 0.1 % (0.0-0.8); EOS# 0.26 X1000 (0.0-0.7); EOS% 2.2 % (0.0-10.0); HEMATOCRIT 30.6 % (42.0-52.0); HEMOGLOBIN 10.3 g/dL (14.0-18.0); IMM GRAN# 0.13 X1000 (0.0-0.04); IMM GRAN% 1.1 % (0.0-0.5); LYMPH# 0.91 X1000 (1.2-3.4); LYMPH% 7.7 % (20.5-51.1); MCH 28.3 PG (27-31); MCHC 33.7 g/dL (33-37); MCV 84.1 FL (81-99); MONO# 1.02 X1000 (0.11-0.59); MONO% 8.6 % (1.7-9.3); NEUT% 80.3 % (42.2-75.2); PLT 334 X1000 (130-400); RBC 3.64 XMIL (4.7-6.1)
--- NOTE | 2016-06-18 05:59 | EKG Report ---
Test Performed on : 06/16/2016 10:31:22 PM Test Reason : Tachycardia Blood Pressure : / mmHG Vent. Rate : 146 BPM Atrial Rate : 292 BPM P-R Int : 000 ms QRS Dur : 130 ms QT Int : 318 ms P-R-T Axes : 000 -30 072 degrees QTc Int : 495 ms Atrial flutter. with 2:1 AV conduction. Left axis deviation Nonspecific intraventricular block ST elevation, consider lateral injury or acute infarct ACUTE AK / STEMI Abnormal ECG When compared with ECG of 14-JUN-2016 09:13, (Unconfirmed) Atrial flutter. has replaced Atrial fibrillation. ST elevation now present in Anterolateral leads T wave inversion now evident in Inferior leads Inverted T waves have replaced nonspecific T wave abnormality in Lateral leads Confirmed by Hayden GASTELUM, Sherman Sharma ([id number]) on 06/18/2016 6:41:09 PM
[2016-06-18 06:09] LABS: POTASSIUM 3.3 mmol/L (3.5-5.1)
[2016-06-18] MEDS ORDERED: HEPARIN IV ONE ×3 (06:30→22:35)
[2016-06-18] MEDS: HEPARIN 25,000 UNIT in NS 250 ML IV SCH ×4 (06:34→22:06)
[2016-06-18] MEDS: HUMULIN R SUBQ SCH ×4 (06:46→22:07)
[2016-06-18] MEDS ORDERED: CALCIUM CARBONATE PO SCH (07:08)
[2016-06-18] MEDS ORDERED: NS 2,000 ML MISC PRN (07:59)
[2016-06-18] MEDS ORDERED: HEPARIN IV PRN ×2 (07:59→14:09)
[2016-06-18] MEDS ORDERED: TIGHT: 0.2 ML/HR MISC PRN (07:59)
[2016-06-18] MEDS: EPOGEN SUBQ SCH (08:03)
[2016-06-18] MEDS: CALTRATE 600 PO SCH ×3 (08:03→17:59)
[2016-06-18] MEDS: ZOFRAN IV PRN (08:12)
[2016-06-18] MEDS ORDERED: NS 2,000 ML ONE (09:05)
[2016-06-18] MEDS ORDERED: HEPARIN ONE ×2 (09:05→14:00)
--- NOTE | 2016-06-18 10:16 | PROGRESS NOTE ---
DATE: 06/18/2016 SUBJECTIVE: The patient is sitting up in bed. He was able to eat some of his breakfast. He states he is still having some nausea. OBJECTIVE/PHYSICAL EXAMINATION: Vital Signs: Temperature 98.5 degrees, pulse 142, respiratory rate 16, blood pressure 114/79. Intake 2.7 Liters. Output not measured. General: Middle-aged gentleman resting in bed. He is awake and alert. No acute distress. HEENT: Normocephalic, atraumatic. Oral mucosa moist. Neck: Supple. Perhaps trace jugular venous distention. Cardiovascular: Regular rate and rhythm without murmur or gallop. Pulmonary: Equal excursion. Clear bilaterally. Decreased breath sounds to the bases, but no increased work of breathing. Abdomen: Soft with positive bowel sounds. Genitourinary: Not inspected. Extremities: No clubbing, cyanosis, or edema. Arteriovenous fistula left upper extremity noted. Integumentary: Skin is warm and dry. LAB DATA: WBC of 11.8, hemoglobin 10.3. Sodium 136, potassium 3.3. CO2 28, BUN 98, creatinine 7.6, calcium 7.0, albumin 2.6. ASSESSMENT AND PLAN: 1. End-stage renal disease. We will dialyze him on a 2 K bath/ultrafiltration as tolerated, 3-4 L of goal, 4 hour treatment today. 2. Electrolytes, acid-base balance. These are acceptable. Continue to treat with dialysis. 3. Fluid volume. See above for plan. 4. Tachycardia. This has been somewhat transient since he has been in the hospital. Followed by primary. Seen, data reviewed, discussed with Evan Rodriguez on 06/18/16. I agree with the above assessment and plan of care. rg Dictated by RACHID Segundo for Son Rosales MD cc: Son Rosales MD [facility]
[2016-06-18] MEDS ORDERED: HEPARIN 25,000 UNIT in NS 250 ML IV SCH (14:15)
[2016-06-18 18:20] LABS: URINE SOURCE CLEAN CATCH
[2016-06-18 18:36] LABS: BILIRUBIN URINE NEGATIVE (NEGATIVE); BLOOD URINE SMALL (NEGATIVE); COLOR YELLOW; GLUCOSE URINE 70 mg/dL (NEGATIVE); LEUKOCYTES URINE MODERATE (NEGATIVE); NITRITE URINE NEGATIVE (NEGATIVE); PROTEIN URINE 300 mg/dL (NEGATIVE); SP GRAVITY URINE 1.012; TURBIDITY URINE HAZY (CLEAR); UROBILINOGEN URINE NORMAL (NORMAL)
[2016-06-18 18:37] LABS: URINE MICRO REVIEW NEEDED? YES
[2016-06-18 18:42] LABS: UR EPITHELIAL CELLS <10 /HPF (<10); URINE BACTERIA NEGATIVE /HPF; URINE CULTURE NEEDED? YES; URINE RBC <10 /HPF (<10); URINE WBC TNTC /HPF (<10)
--- NOTE | 2016-06-18 18:53 | PROGRESS NOTE ---
DATE: 06/18/2016 SUBJECTIVE: This patient is feeling better today. He is tolerating p.o. He is still in atrial fibrillation with episodes of RVR. This patient is not complaining of chest pain or shortness of breath or palpitations. OBJECTIVE: Vital Signs: Temperature 98.2 degrees, pulse 114, respiratory rate 14, blood pressure 115/68, O2 saturation 96 on room air. HEENT: Head normocephalic. No trauma. PERRLA. Neck: Supple. No JVD. No masses. Central trachea. Cardiovascular: Irregularly irregular rate and rhythm. Tachycardic. Extremities: No clubbing, cyanosis, or edema. Abdomen: Soft, nontender, nondistended. No hepatosplenomegaly. Neurological: The patient is alert and oriented x3. No deficits. LABORATORY: WBC 11.8, hemoglobin 10.3, hematocrit 30.6, platelets 334,000. Sodium 136, potassium 3.3, chloride 83, bicarbonate 28, BUN 97, creatinine 7.6, glucose 160, calcium 7, magnesium 1.8. ASSESSMENT AND PLAN: 1. Atrial flutter/atrial fibrillation. Cardiology is following. This patient is on heparin drip. I have started this patient on warfarin today. He is still on diltiazem drip, Lopressor and diltiazem p.o. 2. Uremia. This patient is in end-stage renal disease and nephrology department is on board. 3. Confusion. This is getting better. 4. Type 2 diabetes. Continue with sliding scale and I will put this patient on a low dose of Lantus. 5. Deep vein thrombosis prophylaxis. This patient is on heparin drip and I will start this patient on warfarin. 6. Noncompliance to medication. Education provided. 7. Protein calorie malnutrition mild, encourage p.o. intake. 8. Code status. This patient is full code. cc: Trent Banks MD
[2016-06-18] MEDS: COUMADIN PO SCH (22:07)
[2016-06-18] MEDS: COLACE PO SCH (22:07)
--- NOTE | 2016-06-18 23:50 | PROGRESS NOTE ---
DATE: 06/18/2016 SUBJECTIVE: Patient continues without chest discomfort or dyspnea. He remains on intravenous Cardizem drip with heart rate around 110 beats per minute in atrial fibrillation. OBJECTIVE: Vital signs: Blood pressure 115/68, heart rate 114 and irregular with ECG monitor showing atrial fibrillation. Oxygen saturation 96% on room air. Neck: There is no significant JV distention. Chest: Clear to auscultation. Cardiac: Reveals a irregular tachycardia without appreciable murmur or gallop. There is no evidence of peripheral edema. Echocardiography noteworthy for mild tricuspid regurgitation with moderate pulmonary hypertension, mild mitral regurgitation, moderate concentric left hypertrophy and difficult to assess left ventricular ejection fraction due to significant tachycardia during study. Left ventricular ejection fraction probably underestimated at 30%. Moderate left atrial enlargement is also demonstrated. Small posterior pericardial effusion demonstrated. IMPRESSION: 1. Atrial fibrillation, atrial flutter with rapid ventricular rate. Heart rate better but patient still requiring intravenous Cardizem. Patient unaware of his dysrhythmia. 2. End-stage renal disease requiring hemodialysis. 3. Hypertension. 4. Diabetes mellitus. 5. Gross medical noncompliance. RECOMMENDATIONS: 1. Increase metoprolol further in hopes of being able to wean off of intravenous Cardizem. 2. Continue intravenous heparin for anticoagulation. Agree with warfarin. 3. Repeat echocardiography/Doppler study once patient's heart rate consistently controlled. cc: Jeff Martinez MD
[2016-06-19] MEDS ORDERED: NS 500 ML IV SCH (00:19)
[2016-06-19] MEDS: LOPRESSOR PO SCH ×4 (02:15→21:49)
[2016-06-19] MEDS: CARDIZEM PO SCH ×4 (02:15→21:49)
[2016-06-19 04:57] LABS: BASO% 0.2 % (0.0-0.8); EOS# 0.22 X1000 (0.0-0.7); EOS% 1.7 % (0.0-10.0); HEMATOCRIT 31.5 % (42.0-52.0); HEMOGLOBIN 10.1 g/dL (14.0-18.0); IMM GRAN# 0.22 X1000 (0.0-0.04); IMM GRAN% 1.7 % (0.0-0.5); LYMPH% 6.9 % (20.5-51.1); MANUAL DIFF NEEDED? YES; MCH 28.1 PG (27-31); MCHC 32.1 g/dL (33-37); MCV 87.7 FL (81-99); MONO# 1.34 X1000 (0.11-0.59); MONO% 10.2 % (1.7-9.3); MPV 10.6 FL (7.4-10.4); NEUT% 79.3 % (42.2-75.2); PLT 306 X1000 (130-400); RBC 3.59 XMIL (4.7-6.1)
[2016-06-19 05:06] LABS: INR 1.35; PROTIME 14.5 Seconds (9.2-11.7)
[2016-06-19 05:28] LABS: BANDS 6 % (0-1); LYMPHS 8 % (21-51); MONO 10 % (1-9)
[2016-06-19 05:33] LABS: CALCIUM 7.9 mg/dL (8.8-10.2); POTASSIUM 3.4 mmol/L (3.5-5.1)
[2016-06-19] MEDS: CARDIZEM 100 MG/NS 100 MG/100 ML IVPB IV SCH ×4 (05:37→21:47)
[2016-06-19] MEDS: HUMULIN R SUBQ SCH ×4 (06:26→21:50)
[2016-06-19] MEDS ORDERED: NS 2,000 ML MISC PRN (06:42)
[2016-06-19] MEDS ORDERED: HEPARIN IV PRN (06:42)
[2016-06-19] MEDS ORDERED: TIGHT: 0.2 ML/HR MISC PRN (06:42)
[2016-06-19] MEDS ORDERED: NS 2,000 ML ONE (08:37)
[2016-06-19] MEDS ORDERED: HEPARIN ONE (08:37)
[2016-06-19] MEDS ORDERED: MISC. PHARMACY COMMUNICATION SCH (10:00)
[2016-06-19] MEDS: HEPARIN 25,000 UNIT in NS 250 ML IV SCH ×2 (10:21→23:00)
[2016-06-19] MEDS: CALTRATE 600 PO SCH ×3 (11:51→16:34)
--- NOTE | 2016-06-19 12:40 | PROGRESS NOTE ---
DATE: 06/19/2016 SUBJECTIVE: The patient resting in bed. He wants to go home. OBJECTIVE: Vital Signs: Temperature 98.1, pulse 63, respiratory rate 24, blood pressure 147/114. Intake 1.4L, output 4.5L. General: This is a middle-aged gentleman resting in bed. He is awake and alert. Requesting to go home. HEENT: Normocephalic atraumatic. Oral mucosa moist. Neck: Supple. No JVD. Cardiovascular: Irregular rate and rhythm. The rate is controlled. Remains on Cardizem drip. Pulmonary: Equal excursion. He is clear bilaterally. Abdomen: Soft with positive bowel sounds. : Not inspected. He has minimal void. He has hemodialysis assist. Extremities: No clubbing, cyanosis or edema. AVF noted left upper extremity. Integumentary: Skin is warm and dry, otherwise without rash or lesion. LAB DATA: WBC of 13.0, hemoglobin 10.1. Sodium 136, potassium 3.4. CO2 of 28 , BUN 2, creatinine 4.8. Calcium 7.9. Urinalysis with too numerous to count white cells. ASSESSMENT AND PLAN: 1. End-stage renal disease management. We dialyzed the patient yesterday. We are transitioning him back to a 3 day week dialysis plan. He has already had a hepatitis screen drawn for outpatient needs once he is discharged. I will discuss with the dialysis nurses to go ahead and start the process and set him up for outpatient once he is able to be discharged. 2. Atrial fibrillation with rapid ventricular rate. Followed by primary and cardiology. Patient is still requiring IV Cardizem and has not been able to transition over to p.o. at this time yet. 3. Electrolytes, acid-base balance, anemia. These are all stable. 4. Fluid volume. Continue to dialyze. Seen, data reviewed, discussed with Evan Rodriguez on 06/20/15. I agree with the above assessment and plan care. rg Dictated by RACHID Segundo for Son Rosales MD cc: Son Rosales MD [facility]
--- NOTE | 2016-06-19 15:13 | PROGRESS NOTE ---
DATE: 06/19/2016 SUBJECTIVE: This patient states that he is feeling better. He is tolerating p.o. He is still in atrial fibrillation with episodes of RVR. This patient is not complaining of chest pain, shortness of breath, or palpitations. OBJECTIVE: Vital Signs: Temperature 98.4 degrees, pulse 139, respiratory rate 21, blood pressure 153/69, oxygen saturation 95% on room air. HEENT: Head normocephalic. No trauma. PERRLA. Neck: Supple. No JVD. No masses. Central trachea. Cardiovascular: Irregularly irregular rate and rhythm. Tachycardic. Extremities: No clubbing, cyanosis, or edema. Abdomen: Soft, nontender, nondistended. No hepatosplenomegaly. Neurological: The patient is alert and oriented x3. No focal neurological deficits. LABORATORY: WBC 13, hemoglobin 10.1, hematocrit 31.5, platelets 306,000. Sodium 136, potassium 3.4, chloride 90, bicarbonate 28, creatinine 4.8, glucose 130, calcium 7.9. ASSESSMENT AND PLAN: 1. Atrial fibrillation/atrial flutter. Cardiology is following. This patient is still on diltiazem drip and heparin drip. We have started this patient on warfarin. Continue following the recommendations of cardiology. 2. Uremia. This patient is end-stage renal disease. Nephrology is following this patient. He will go back to regular schedule, 3 times week. 3. Confusion, resolved. 4. Type 2 diabetes. Continue with sliding scale. I started this patient already on a low dose Lantus and the blood sugar looks better controlled. I will continue with the same management for now. 5. Protein calorie malnutrition, mild. Encourage p.o. intake. 6. Deep vein thrombosis prophylaxis. This patient is on a heparin drip and warfarin. 7. Noncompliance to medication. Education provided. 8. Cold status. Full code. CRITICAL CARE TIME: 35 minutes. cc: Trent Banks MD
--- NOTE | 2016-06-19 15:19 | PROGRESS NOTE ---
DATE: 06/19/2016 SUBJECTIVE: The patient continues without chest discomfort or dyspnea. He remains on intravenous Cardizem drip with heart rate around 110 beats per minute in atrial fibrillation. OBJECTIVE: Vital Signs: Blood pressure 153/69, heart rate 110 and irregular with ECG monitor showing atrial fibrillation. Neck: There is no significant JV distention. Chest: Clear to auscultation. Heart Exam: Is a irregular tachycardia without appreciable murmur or gallop. There is no evidence of peripheral edema. IMPRESSION: 1. Atrial fibrillation and atrial flutter with rapid ventricular rate. 2. End-stage renal disease requiring hemodialysis. 3. Hypertension. 4. Diabetes mellitus. 5. Gross medical noncompliance. RECOMMENDATIONS: 1. Increase diltiazem further and consider further increase metoprolol in hopes of achieving better control of heart rate and allowing weaning off of intravenous Cardizem. 2. Continue intravenous heparin for anticoagulation until INR 2.0 or greater. cc: Jeff Martinez MD
[2016-06-19] MEDS: PHENERGAN IV PRN (21:47)
[2016-06-19] MEDS: SODIUM CHLORIDE 0.9% INJ PRN (21:47)
[2016-06-19] MEDS: MORPHINE IV PRN (21:48)
[2016-06-19] MEDS: COLACE PO SCH (21:49)
[2016-06-19] MEDS: COUMADIN PO SCH (21:50)
[2016-06-20] MEDS: CARDIZEM 100 MG/NS 100 MG/100 ML IVPB IV SCH ×5 (02:35→20:45)
[2016-06-20] MEDS: CARDIZEM PO SCH ×4 (02:36→20:31)
[2016-06-20] MEDS: LOPRESSOR PO SCH ×4 (02:36→20:31)
[2016-06-20 05:11] LABS: MANUAL DIFF NEEDED? NO
[2016-06-20 05:25] LABS: BASO% 0.1 % (0.0-0.8); EOS# 0.24 X1000 (0.0-0.7); EOS% 1.8 % (0.0-10.0); HEMOGLOBIN 10.3 g/dL (14.0-18.0); IMM GRAN# 0.37 X1000 (0.0-0.04); IMM GRAN% 2.8 % (0.0-0.5); LYMPH# 1.39 X1000 (1.2-3.4); LYMPH% 10.7 % (20.5-51.1); MCHC 31.2 g/dL (33-37); MCV 89.7 FL (81-99); MONO# 1.36 X1000 (0.11-0.59); MONO% 10.5 % (1.7-9.3); NEUT% 74.1 % (42.2-75.2); PLT 339 X1000 (130-400); RBC 3.68 XMIL (4.7-6.1)
[2016-06-20 05:41] LABS: INR 1.34; PROTIME 14.3 Seconds (9.2-11.7)
[2016-06-20 05:56] LABS: CALCIUM 8.2 mg/dL (8.8-10.2); POTASSIUM 3.6 mmol/L (3.5-5.1)
[2016-06-20] MEDS ORDERED: HEPARIN IV ONE (06:53)
[2016-06-20] MEDS: HUMULIN R SUBQ SCH ×4 (07:05→20:31)
[2016-06-20] MEDS ORDERED: HEPARIN IV PRN (07:25)
[2016-06-20] MEDS ORDERED: NS 2,000 ML MISC PRN (07:25)
[2016-06-20] MEDS ORDERED: TIGHT: 0.2 ML/HR MISC PRN (07:25)
[2016-06-20] MEDS: CALTRATE 600 PO SCH ×3 (08:18→16:07)
[2016-06-20] MEDS ORDERED: HEPARIN ONE (08:57)
[2016-06-20] MEDS ORDERED: NS 2,000 ML ONE (08:57)
--- NOTE | 2016-06-20 10:28 | PROGRESS NOTE ---
DATE: 06/20/2016 SUBJECTIVE: This patient states that he is feeling better. He is tolerating p.o. He is still having atrial fibrillation with RVR. He is still on Cardizem drip, also p.o. beta blockers. He denies shortness of breath chest pain or palpitations. OBJECTIVE: Vital Signs: Temperature 98.4 degrees, pulse 105, respiratory rate 16, blood pressure 107/61, oxygen saturation 93 on room air. HEENT: Head normocephalic. No trauma. PERRLA. Neck: Supple. No JVD. No masses. Central trachea. Cardiovascular: Irregularly irregular rate and rhythm. Tachycardic. Respiratory: Chest clear to auscultation. No wheezing. No rales. Extremities: No clubbing, cyanosis, or edema. Abdomen: Soft, nontender, nondistended. No hepatosplenomegaly. Neurological: The patient is alert and oriented x3. No focal neurological deficits. LABORATORY DATA: WBC 13, hemoglobin 10.3, hematocrit 33, platelet 339. Sodium 138, potassium 3.6, chloride 94, bicarbonate 25, BUN 42, creatinine 4.3, glucose 150, calcium 8.2. ASSESSMENT AND PLAN: 1. Atrial fibrillation/atrial flutter with rapid ventricular response. Cardiology is following this patient. Also this patient is still on a Cardizem drip and heparin drip. We already started this patient on warfarin. Continue following the recommendation of Cardiology. 2. Anemia. This patient has end-stage renal disease. Nephrology is following this patient and he will have dialysis today. 3. Confusion resolved. 4. Type 2 diabetes. Continue with sliding scale, and Lantus. 5. Protein calorie malnutrition, mild. Encourage p.o. intake. 6. Deep vein thrombosis prophylaxis. Patient is on heparin drip and warfarin. 7. Noncompliance to medications. Education provided. 8. Code status: Full code. CRITICAL CARE TIME: Thirty-five minutes. cc: Trent Banks MD
[2016-06-20] MEDS: HEPARIN 25,000 UNIT in NS 250 ML IV SCH ×2 (11:02→22:07)
--- NOTE | 2016-06-20 11:11 | PROGRESS NOTE ---
DATE: 06/20/2016 SUBJECTIVE: Patient is sitting up in bed. He has not eaten breakfast yet this morning. He states he is waiting to go to dialysis. OBJECTIVE: Vital Signs: Temperature 98.4 degrees, pulse 105, respiratory rate 16, blood pressure 107/61. Intake 1.5 L, output 800 mL. PHYSICAL EXAMINATION: General: This is a chronically ill-appearing, middle- aged gentleman resting in bed. He is in no acute distress. HEENT: Normocephalic atraumatic. Oral mucosa is moist. TISH, conjunctivae pink. Neck: Supple. No JVD. Cardiovascular: Reveals an irregularly irregular rhythm. Rate controlled. On Cardizem drip. Pulmonary: He has equal excursion. He is clear bilaterally. Abdomen: Soft, with positive bowel sounds. : Not inspected. He has minimal void with hemodialysis assist. Extremities: No clubbing, cyanosis or edema. AV fistula noted. Integumentary: Skin is warm and dry without rash or lesion. LAB DATA: WBC of 13.0, hemoglobin 10.3. Sodium 138, potassium 3.6, chloride 94 , CO2 25, BUN 42, creatinine 4.3, calcium 8.2. ASSESSMENT AND PLAN: 1. End-stage renal disease on hemodialysis. We are transitioning him over to a 3 day a week dialysis plan while he is in the hospital to facilitate outpatient needs. We have already discussed with the outpatient dialysis clinic so that this can be set up prior to his discharge. He will dialyze on a 3 K bath/UF 2-3 L or as tolerated for a full treatment today. 2. Atrial fibrillation with RVR. Followed by Cardiology. He is still requiring a Cardizem drip. 3. Electrolytes, acid-base balance. See #1 for plan. 4. Anemia stable. Continue to monitor. 5. Fluid volume control with dialysis. Seen, data reviewed, discussed with Evan Rodriguez on 06/20/16. I agree with the above assessment and plan of care. rg Dictated by RACHID Segundo for Son Rosales MD cc: Son Rosales MD [facility]
[2016-06-20] MEDS: EPOGEN SUBQ SCH (15:03)
[2016-06-20] MEDS: ZOFRAN IV PRN (15:03)
--- NOTE | 2016-06-20 19:38 | PROGRESS NOTE ---
DATE: 06/20/2016 SUBJECTIVE: Patient denies any chest discomfort or dyspnea on room air. He relates feeling comfortable. OBJECTIVE: Vital Signs: Blood pressure 120/89, heart rate 82 and regular. ECG monitor showing sinus rhythm. Neck: There is no significant JV distention. Chest: Clear to auscultation. Cardiac Examination: Regular rate and rhythm without appreciable murmur, rub or gallop. There is no evidence of edema. REPEAT ECG: Demonstrates sinus rhythm with first-degree block. There is diffuse ST elevation. Consider pericarditis, early repolarization or less likely injury. IMPRESSION: 1. Atrial fibrillation and atrial flutter with rapid ventricular rate. Patient has converted back to sinus rhythm. 2. Abnormal ECG. This may very well be due to some degree of uremic pericarditis. Echocardiography did show small pericardial effusion. He has no chest pain and appears quite comfortable presently. We will continue to observe. 3. Hypertension. 4. Diabetes mellitus. 5. End-stage renal disease requiring hemodialysis. 6. Gross medical noncompliance. RECOMMENDATIONS: 1. Discontinue intravenous Cardizem. 2. Repeat limited echocardiography. cc: Jeff Martinez MD
[2016-06-20] MEDS: COLACE PO SCH (20:30)
[2016-06-20] MEDS: COUMADIN PO SCH (20:31)
[2016-06-20] MEDS ORDERED: CARDIZEM IV ONE (20:47)
[2016-06-20] MEDS ORDERED: CARDIZEM ONE (20:59)
[2016-06-20] MEDS: MORPHINE IV PRN (21:45)
[2016-06-20] MEDS: SODIUM CHLORIDE 0.9% INJ PRN (21:46)
[2016-06-20] MEDS: PHENERGAN IV PRN (21:46)
[2016-06-21] MEDS: CARDIZEM 100 MG/NS 100 MG/100 ML IVPB IV SCH ×3 (00:16→16:13)
[2016-06-21] MEDS: CARDIZEM PO SCH ×4 (04:05→20:41)
[2016-06-21] MEDS: LOPRESSOR PO SCH ×4 (04:06→20:40)
--- NOTE | 2016-06-21 05:15 | EKG Report ---
Test Performed on : 06/20/2016 6:07:00 PM Test Reason : change in rhythm Blood Pressure : / mmHG Vent. Rate : 083 BPM Atrial Rate : 083 BPM P-R Int : 206 ms QRS Dur : 116 ms QT Int : 412 ms P-R-T Axes : 013 -14 053 degrees QTc Int : 484 ms Normal sinus rhythm. Incomplete left bundle branch block ST elevation, consider early repolarization, pericarditis, or injury Prolonged QT Abnormal ECG When compared with ECG of 17-JUN-2016 02:28, Sinus rhythm. has replaced Atrial flutter. Vent. rate has decreased BY 68 BPM Incomplete left bundle branch block has replaced Nonspecific intraventricular conduction delay consider pericarditis if clinically appropriate Confirmed by Hayden GASTELUM, Sherman Sharma ([id number]) on 06/21/2016 8:36:49 AM
--- NOTE | 2016-06-21 05:15 | EKG Report ---
Test Performed on : 06/20/2016 8:54:18 PM Test Reason : went back into hatrial fib Blood Pressure : / mmHG Vent. Rate : 143 BPM Atrial Rate : 286 BPM P-R Int : 000 ms QRS Dur : 104 ms QT Int : 376 ms P-R-T Axes : 000 -36 266 degrees QTc Int : 580 ms Atrial flutter. with variable AV block. with premature ventricular or aberrantly conducted complexes . Left axis deviation Abnormal ECG When compared with ECG of 20-JUN-2016 18:07, (Unconfirmed) Atrial flutter. has replaced Sinus rhythm. Vent. rate has increased BY [address] now depressed in Inferior leads T wave inversion now evident in Inferior leads Confirmed by Hayden GASTELUM, Sherman Sharma ([id number]) on 06/21/2016 8:37:13 AM
[2016-06-21 05:23] LABS: MANUAL DIFF NEEDED? NO
[2016-06-21 05:26] LABS: BASO% 0.2 % (0.0-0.8); EOS# 0.24 X1000 (0.0-0.7); EOS% 1.9 % (0.0-10.0); HEMOGLOBIN 10.3 g/dL (14.0-18.0); IMM GRAN# 0.43 X1000 (0.0-0.04); IMM GRAN% 3.4 % (0.0-0.5); LYMPH# 1.36 X1000 (1.2-3.4); LYMPH% 10.8 % (20.5-51.1); MCH 28.3 PG (27-31); MCHC 31.2 g/dL (33-37); MCV 90.7 FL (81-99); MONO% 9.5 % (1.7-9.3); MPV 10.7 FL (7.4-10.4); NEUT% 74.2 % (42.2-75.2); PLT 317 X1000 (130-400); RBC 3.64 XMIL (4.7-6.1)
[2016-06-21 05:33] LABS: INR 1.49; PROTIME 16.1 Seconds (9.2-11.7)
[2016-06-21 05:50] LABS: CALCIUM 8.4 mg/dL (8.8-10.2); POTASSIUM 3.5 mmol/L (3.5-5.1)
[2016-06-21] MEDS: HUMULIN R SUBQ SCH ×4 (07:47→20:47)
[2016-06-21] MEDS: CALTRATE 600 PO SCH ×3 (08:07→16:13)
[2016-06-21] MEDS: HEPARIN 25,000 UNIT in NS 250 ML IV SCH ×3 (08:36→20:39)
--- NOTE | 2016-06-21 10:38 | PROGRESS NOTE ---
DATE: 06/21/2016 SUBJECTIVE: This patient states that he is feeling better. He is tolerating p.o. He is still having atrial fibrillation with rapid ventricular response. He is still on Cardizem drip; also p.o. beta blockers and Cardizem p.o. He denies any shortness of breath or palpitation. OBJECTIVE: Vital Signs: Temperature 97.8 degrees, pulse 136, respiratory rate 20, blood pressure 116/73, oxygen saturation 97% on room air. HEENT: Head normocephalic. No trauma. PERRLA. Neck: Supple. No JVD. No masses. Central trachea. Chest: Clear to auscultation. No wheezing. No rales. Cardiovascular: Irregular rate and rhythm. Extremities: No clubbing, cyanosis, or edema. Neurological examination: The patient is alert and oriented x3. No focal neurological deficits. LABORATORY: WBC 12.5, hemoglobin 10.3, hematocrit 33, platelets 317. PT 16.1, INR 1.49. Sodium 137, potassium 3.5, chloride 96, bicarbonate 25, BUN 32, creatinine 3.6, glucose 126, calcium 8.4. ASSESSMENT AND PLAN: 1. Atrial fibrillation/atrial flutter with rapid ventricular response. Cardiology is following this patient. He is still on Cardizem drip and heparin drip. We have already started this patient on heparin. The INR is around 1.5. We will continue with the same management and follow the recommendation of Cardiology Department. 2. Anemia. This patient has end-stage renal disease. This anemia is likely secondary to chronic disease and kidney injury. We will monitor. 3. End-stage renal disease on hemodialysis scheduled. Continue with the same management. 4. Confusion, resolved. 5. Type 2 diabetes. Continue with sliding scale and Lantus. 6. Protein calorie malnutrition, mild. Encouraged oral intake. 7. Deep vein thrombosis prophylaxis. This patient is on a heparin drip and warfarin. 8. Noncompliance to medications. Education provided. 9. Code status: Full code. cc: Trent Banks MD
[2016-06-21] MEDS: CORDARONE PO SCH ×2 (13:39→16:14)
--- NOTE | 2016-06-21 14:06 | PROGRESS NOTE ---
DATE: 06/21/2016 CARDIOLOGY FOLLOW UP NOTE: SUBJECTIVE: Mr. Gupta relates feeling well. He denies any chest discomfort or dyspnea. The patient converted back to atrial fibrillation last night and was restarted on an intravenous Cardizem drip. OBJECTIVE: Vital Signs: Blood pressure is 109/73. Heart rate is 130-135 and irregular with ECG monitor showing atrial fibrillation with a rapid ventricular rate. Neck: There is no significant jugular venous distention. Respiratory: Chest is clear to auscultation. Cardiovascular: Cardiac exam reveals a irregular tachycardia without appreciable murmur or gallop. There is no evidence of peripheral edema. IMPRESSION: 1. Recurrent paroxysmal atrial fibrillation with rapid ventricular rate. His arrhythmia continues to recur in the face of current medical management and dialysis for several days. 2. Hypertension. 3. Diabetes mellitus. 4. End-stage renal disease requiring hemodialysis. 5. Gross medical noncompliance prior to admission. RECOMMENDATIONS: 1. Continue efforts to anticoagulate. 2. Initiate amiodarone to suppress atrial fibrillation at this point given the difficulty that he has had so far with controlling his heart rate response to atrial fibrillation and the recurrent nature of his arrhythmia in the face of medical optimization. cc: Jeff Martinez MD
--- NOTE | 2016-06-21 14:18 | ECHO REPORT ---
ORDER DATE: 06/14/2016 INDICATION FOR THE STUDY: Anemia. Systolic murmur. FINDINGS: 1. The right atrium appears normal in size. 2. There is mild tricuspid regurgitation. RV systolic pressure of 43. 3. Normal RV size and systolic function. 4. Mild pulmonic insufficiency. 5. Moderate left atrial enlargement at 5 cm. 6. There is no evidence of mitral valve prolapse. There does appear to be significant mitral annular calcification predominantly in the posterior section. In some views, this is somewhat well circumscribed and spherical in shape suggesting the possibility of an old healed vegetation. It is very bright, calcific, and sclerotic in appearance. There is trace mitral insufficiency or mitral regurgitation. There is no evidence of significant mitral stenosis. 7. The left ventricle appears somewhat dilated at 6.2 cm. Mild left ventricular hypertrophy with a posterior and interventricular septal wall thickness of 1.2 cm. The estimated ejection fraction is 55%. I do not see any clear evidence of segmental wall motion abnormalities. 8. The aortic valve is somewhat calcified but appears trileaflet with no evidence of stenosis and trace insufficiency. 9. The aorta appears normal in visualized segments. 10. There is scant evidence for a very small anterior pericardial effusion. 11. The structure adherent to the posterior mitral leaflet is 1.4 x 2.3 cm in dimensions. cc: MD Eliot Hernandez MD
--- NOTE | 2016-06-21 14:25 | ECHO REPORT ---
ORDER DATE: 06/21/2016 This is a limited study to evaluate LV function, and for pericardial effusion. FINDINGS: 1. Mitral valve appears to be opening well. Again there is a significant area of calcification noted primarily in the posterior leaflet. This could be some mitral annular calcification however there could also be an old healed vegetation in that area. Dimensions on this study were measured at 1.7 x 3.8 cm. There was mild mitral regurgitation associated with this. 2. The LV systolic function appears mildly reduced but this is a somewhat difficult study to interpret due to the rate being in the 130s persistently during the study. Estimated EF is around 45%. Globally hypokinetic. 3. Aortic valve was sclerotic but appeared to open well. No clear evidence of stenosis or insufficiency was identified. 4. There is an anterior pericardial effusion noted with no evidence of tamponade physiology. The maximum dimension on this study was 1.8 cm which does appear to be enlarged from the previous. 5. Mild tricuspid regurgitation. RV systolic pressure measured at 38. cc: MD Anuradha Hernandez PA
--- NOTE | 2016-06-21 15:38 | PROGRESS NOTE ---
DATE: 06/21/2016 SUBJECTIVE: The patient is sitting up in bed. He has no complaints. He states that they are trying to change him over to oral medications from his IV for his heart rate. OBJECTIVE: Vital Signs: Temperature 98.1 degrees, pulse 139, respiratory rate 20, blood pressure 109/73. Intake 655 mL; output 2.4 L. General: Chronically ill-appearing, middle-aged gentleman resting in bed. No acute distress. HEENT: Normocephalic, atraumatic. Oral mucosa moist. TISH. Neck: Supple. No JVD. Cardiovascular: Tachycardic irregularly irregular rhythm. He remains on Cardizem drip. Pulmonary: Equal excursion. He is clear bilaterally. Abdomen : Soft, positive bowel sounds. : Not inspected. He has minimal void with hemodialysis assist. Extremities: No clubbing, cyanosis or edema. He is moving all extremities without difficulty. Repositioning himself in the bed. Integumentary: Skin is warm and dry, otherwise. LAB DATA: WBC of 12.5 hemoglobin 10.3, hematocrit 33.0 and platelet count of 317. Sodium 137, potassium 3.5, chloride 96, BUN 32, creatinine 3.6. ASSESSMENT AND PLAN: 1. End-stage renal disease management. We have him on a 3 day a week Saturday, Saturday, Saturday schedule while he is in the hospital. We will continue this. He dialyzed yesterday. We will plan to dialyze him on Saturday. 2. Atrial fibrillation with rapid ventricular response. Followed by cardiology. He is on a Cardizem drip as of this afternoon. 3. Electrolytes, acid-base balance, anemia. These are stable. Continue to monitor. Treat as warranted with dialysis. 4. Fluid volume. He is not overloaded. We will continue dialysis for fluid management as appropriate. 5. Hypertension, controlled. Seen, data reviewed, discussed with Evan Rodriguez on 06/22/15. I agree with the above assessment and plan of care. rg Dictated by RACHID Segundo for Son Rosales MD cc: Son Rosales MD [facility]
[2016-06-21] MEDS: COUMADIN PO SCH (20:40)
[2016-06-21] MEDS: MORPHINE IV PRN (20:40)
[2016-06-21] MEDS: COLACE PO SCH (20:41)
[2016-06-22] MEDS: CARDIZEM 100 MG/NS 100 MG/100 ML IVPB IV SCH ×3 (00:47→16:31)
[2016-06-22] MEDS: LOPRESSOR PO SCH ×5 (03:09→20:10)
[2016-06-22] MEDS: CARDIZEM PO SCH ×5 (03:10→20:10)
[2016-06-22] MEDS: HEPARIN 25,000 UNIT in NS 250 ML IV SCH (04:30)
[2016-06-22 05:33] LABS: MANUAL DIFF NEEDED? NO
[2016-06-22 05:40] LABS: BASO% 0.1 % (0.0-0.8); EOS# 0.25 X1000 (0.0-0.7); EOS% 1.9 % (0.0-10.0); HEMOGLOBIN 10.2 g/dL (14.0-18.0); IMM GRAN# 0.29 X1000 (0.0-0.04); IMM GRAN% 2.2 % (0.0-0.5); LYMPH# 1.39 X1000 (1.2-3.4); LYMPH% 10.6 % (20.5-51.1); MCH 27.9 PG (27-31); MCHC 30.9 g/dL (33-37); MCV 90.2 FL (81-99); MONO% 9.9 % (1.7-9.3); MPV 11.2 FL (7.4-10.4); NEUT% 75.3 % (42.2-75.2); PLT 332 X1000 (130-400); RBC 3.66 XMIL (4.7-6.1)
[2016-06-22 05:43] LABS: INR 1.69; PROTIME 18.4 Seconds (9.2-11.7)
[2016-06-22 05:53] LABS: POTASSIUM 3.7 mmol/L (3.5-5.1)
[2016-06-22] MEDS: HUMULIN R SUBQ SCH ×4 (06:12→20:18)
[2016-06-22] MEDS ORDERED: TIGHT: 0.2 ML/HR MISC PRN (07:08)
[2016-06-22] MEDS ORDERED: NS 2,000 ML MISC PRN (07:08)
[2016-06-22] MEDS ORDERED: HEPARIN IV PRN (07:08)
[2016-06-22] MEDS ORDERED: HEPARIN 25,000 UNIT in NS 250 ML IV SCH ×2 (07:30→18:00)
[2016-06-22] MEDS: CORDARONE PO SCH ×4 (09:06→16:33)
[2016-06-22] MEDS: CALTRATE 600 PO SCH ×3 (09:06→16:33)
[2016-06-22] MEDS: EPOGEN SUBQ SCH (09:07)
[2016-06-22] MEDS ORDERED: LOPRESSOR PO ONE (09:24)
[2016-06-22] MEDS: LANOXIN IV SCH ×2 (09:34→11:42)
--- NOTE | 2016-06-22 11:09 | PROGRESS NOTE ---
DATE: 06/22/2016 SUBJECTIVE: No acute events overnight, this patient is feeling better. He denies any chest pain or shortness of breath. OBJECTIVE: Vital Signs: Temperature 97.5 degrees, pulse 125, respiratory rate 20, blood pressure 107/61, O2 saturation 100% on room air. HEENT: Normocephalic. No trauma. PERRLA. Neck: Supple. No JVD. No masses. Central trachea. Chest: Clear to auscultation. No wheezing. No rales. Cardiovascular: Irregularly irregular rate and rhythm. Extremities: No clubbing, no cyanosis. No edema. Neurological: The patient is alert and oriented x3. No focal deficits. LABORATORY: WBC 13.1, hemoglobin 10.2, hematocrit 33, platelets 332,000. Sodium 135, potassium 3.7, chloride 93, bicarbonate 23, BUN 47, creatinine 4.9, glucose 130, calcium 8. ASSESSMENT AND PLAN: 1. Atrial fibrillation with rapid ventricular response. This patient is still on diltiazem drip, and also he is getting multiple medications p.o. including metoprolol, carvedilol, and amiodarone. 2. Anemia. This patient has end-stage renal disease. The anemia is likely secondary to chronic disease and kidney injury. We will monitor. 3. End-stage renal disease on hemodialysis. Continue as scheduled. 4. Confusion resolved. 5. Type 2 diabetes. Continue with sliding scale insulin and Lantus. 6. Protein calorie malnutrition, mild, encourage oral intake. 7. Deep vein thrombosis prophylaxis. This patient is on heparin drip and warfarin. 8. Noncompliance to medication. Education provided. 9. Code status. Full code. CRITICAL CARE TIME: Thirty minutes. cc: Trent Banks MD
[2016-06-22] MEDS ORDERED: HEPARIN ONE (11:41)
[2016-06-22] MEDS ORDERED: NS 2,000 ML ONE (11:41)
--- NOTE | 2016-06-22 12:21 | PROGRESS NOTE ---
DATE: 06/22/2016 SUBJECTIVE: He is about the same. Still asking for discharge. OBJECTIVE: Vital Signs: Blood pressure 94/62, heart rate 130, respirations 20 and afebrile. General: He is in no acute distress. Skin: Warm and dry. Eyes: Conjunctivae are pink. Neck: Neck veins are not distended. Heart: Regular and tachycardic. Lungs: Have equal breath sounds. No crackles. Abdomen: Soft, nontender. Bowel sounds present. Extremities: Have no edema, clubbing, or cyanosis. LABORATORY DATA: Sodium 135, potassium 3.7, chloride 93, bicarbonate 23, BUN 47, creatinine 4.9, hemoglobin 10.2. IMPRESSION: 1. End-stage kidney disease. Hemodialysis today. 2. Atrial fibrillation. Continues with tachycardia on diltiazem. 3. Electrolytes/acid base in target. 4. Anemia is in target. 5. Anticoagulation with Coumadin. cc: Son Rosales MD
[2016-06-22 14:15] LABS: INR 1.95; PROTIME 21.4 Seconds (9.2-11.7)
--- NOTE | 2016-06-22 18:48 | PROGRESS NOTE ---
DATE: 06/22/2016 SUBJECTIVE: Patient continues without any chest discomfort or dyspnea on room air. He continues in atrial fibrillation with heart rate currently below 100 beats per minute. OBJECTIVE: Vital Signs: Blood pressure 120/60, heart rate 99 and irregular. Neck: There is no significant JV distention. There are no carotid bruits. Chest: Clear to auscultation. Cardiac Examination: Reveals an irregular rate and rhythm without appreciable murmur or gallop. There is no evidence of peripheral edema. DIAGNOSTIC: Limited repeat echocardiography indicated. Small to medium size pericardial effusion without evidence of hemodynamic compromise. This has increased some since previous echocardiography obtained earlier during his hospital stay. No wall motion abnormalities in left ventricle were evident. IMPRESSION: 1. Recurrent atrial fibrillation with rapid ventricular rate. His arrhythmia has continued to recur in the face of current medical management and dialysis for several days and is associated with difficult to control heart rate. 2. Hypertension. 3. Diabetes mellitus. 4. End-stage renal disease requiring hemodialysis. 5. Probable component of uremic pericarditis. 6. Recent gross medical noncompliance prior to admission. RECOMMENDATIONS: 1. Continue current rate control measures. 2. Continue amiodarone in an effort to improve rate control and potentially aid in presybeterian of sinus rhythm. 3. Continue transitioning away from intravenous heparin to warfarin alone once INR is greater than 2. cc: Jeff Martinez MD
[2016-06-22] MEDS: NORCO-5 PO PRN (19:07)
[2016-06-22] MEDS: COLACE PO SCH (20:10)
[2016-06-22] MEDS: COUMADIN PO SCH (20:10)
[2016-06-22] MEDS: MORPHINE IV PRN (20:18)
[2016-06-23] MEDS: LOPRESSOR PO SCH ×4 (02:56→19:56)
[2016-06-23] MEDS: CARDIZEM PO SCH ×4 (02:57→19:56)
[2016-06-23 05:41] LABS: MANUAL DIFF NEEDED? NO
[2016-06-23] MEDS: CARDIZEM 100 MG/NS 100 MG/100 ML IVPB IV SCH ×2 (05:49→19:55)
[2016-06-23 05:50] LABS: BASO% 0.2 % (0.0-0.8); EOS# 0.21 X1000 (0.0-0.7); EOS% 1.6 % (0.0-10.0); HEMATOCRIT 34.1 % (42.0-52.0); HEMOGLOBIN 10.4 g/dL (14.0-18.0); IMM GRAN# 0.19 X1000 (0.0-0.04); IMM GRAN% 1.5 % (0.0-0.5); LYMPH% 8.6 % (20.5-51.1); MCHC 30.5 g/dL (33-37); MCV 91.7 FL (81-99); MONO% 9.3 % (1.7-9.3); MPV 11.4 FL (7.4-10.4); NEUT% 78.8 % (42.2-75.2); PLT 350 X1000 (130-400); RBC 3.72 XMIL (4.7-6.1)
[2016-06-23 05:52] LABS: INR 1.95; PROTIME 21.4 Seconds (9.2-11.7)
[2016-06-23 06:09] LABS: POTASSIUM 3.9 mmol/L (3.5-5.1)
[2016-06-23] MEDS: HUMULIN R SUBQ SCH ×4 (08:01→20:09)
[2016-06-23] MEDS: CORDARONE PO SCH ×3 (08:11→17:10)
[2016-06-23] MEDS: CALTRATE 600 PO SCH ×3 (08:11→17:46)
[2016-06-23] MEDS: ZOFRAN IV PRN (09:06)
[2016-06-23] MEDS: MORPHINE IV PRN ×2 (11:11→19:55)
--- NOTE | 2016-06-23 12:23 | PROGRESS NOTE ---
DATE: 06/23/2016 SUBJECTIVE: The patient relates some headache but no chest discomfort or dyspnea. He continues on intravenous Cardizem for rate control. OBJECTIVE: Vital signs: Blood pressure 107/59, heart rate 78 and irregular with ECG monitor showing atrial fibrillation and controlled rate. There appears to possibly be episodes where he is in sinus rhythm. Neck: There is no significant jugular venous distention. Chest: Clear to auscultation. Cardiac: Irregular rate and rhythm without appreciable murmur or gallop. There is no evidence of peripheral edema. IMPRESSION: 1. Persistent atrial fibrillation with difficult rate control. 2. Small pericardial effusion possibly related to uremic pericarditis. 3. Hypertension. 4. Diabetes mellitus. 5. End-stage renal disease requiring hemodialysis with recent noncompliance for several months. 6. Recent noncompliance with hemodialysis for several months. RECOMMENDATIONS: 1. Continue amiodarone in effort to improve rate control and potentially aide in congregational of sinus rhythm. 2. Continue intravenous Cardizem as required with goal of keeping heart rate less than 110. 3. Maintain anticoagulation. INR today 1.95 on warfarin. Intravenous heparin discontinued. cc: Jeff Martinez MD
--- NOTE | 2016-06-23 12:29 | PROGRESS NOTE ---
DATE: 06/23/2016 SUBJECTIVE: Patient is without any complaints today. He notes that he is still having elevated heart rates, occasional palpitations. Denies any fevers or chills. Denies any diarrhea, constipation, melena, or hematochezia. Denies any dysuria or frequency. PHYSICAL EXAMINATION: Vitals: Reviewed. Temperature 97 degrees, pulse 115-130, blood pressure 107/59 to 130/79, saturation 93% to 97% on room air. General: Patient is awake, alert, oriented. He is currently in no respiratory distress. He is lying in the bed, covered up. HEENT: Normocephalic, atraumatic. Neck: Supple. Cardiovascular: Irregular rate, irregular rhythm. No apparent murmur. Chest: Relatively clear. No wheezing. No crackles. Nonlabored. Abdomen: Soft. Positive bowel sounds. Extremities: Moves all extremities. Neurologic: No focal neurological changes. Skin: Warm and dry. No rashes. LABORATORIES: CBC and CMP unchanged. Creatinine is 3.9. ASSESSMENT: 1. Atrial fibrillation with rapid ventricular response. Patient continues to be on diltiazem drip. In fact, we had to increase the dose moments ago. He is continued on metoprolol, Coreg, and amiodarone. 2. Anemia, stable, likely secondary to chronic kidney disease. 3. End-stage renal disease, on dialysis. Creatinine has improved today at 3.9. 4. Acute metabolic encephalopathy, resolved. 5. Type 2 diabetes. Blood sugars have remained relatively stable in the 140s to occasional 200s. We will continue his medication. 6. Coagulation. INR is still 1.9. Will not stop his Lovenox today. If INR does not improve tomorrow, we will certainly need to increase his Coumadin dosing. TIME SPENT: Thirty-four minutes spent in critical care. cc: Eliot Bundy MD
--- NOTE | 2016-06-23 16:19 | PROGRESS NOTE ---
DATE: 06/23/2016 SUBJECTIVE: He is in good spirits today. He states he has been able to eat. No shortness of breath. OBJECTIVE: Vital Signs: Blood pressure 107/59, heart rate 128, respiration 18, afebrile. Generally: He is lying on his left side, in no acute distress. Skin: Warm and dry. Conjunctivae are pink. Neck: Neck veins are not distended. Heart: Regular and heart rate is about 100 at the time of exam. Lungs: Have equal breath sounds. No crackles. Abdomen: Soft, nontender. Bowel sounds present. Extremities: Have no edema, clubbing, or cyanosis. IMPRESSION: 1. End-stage kidney disease. He will be due for his next treatment on Saturday. 2. Electrolytes/acid base/anemia on target. 3. Hypertension. Blood pressure is low. 4. Atrial fibrillation with rapid response. Perhaps he is improving. cc: Son Rosales MD
[2016-06-23] MEDS: COLACE PO SCH ×2 (19:56→20:10)
[2016-06-23] MEDS: COUMADIN PO SCH ×2 (19:56→20:10)
[2016-06-23] MEDS: NORCO-5 PO PRN (23:35)
[2016-06-24] MEDS: CARDIZEM PO SCH ×4 (02:47→20:04)
[2016-06-24] MEDS: LOPRESSOR PO SCH ×4 (02:48→20:05)
[2016-06-24 05:13] LABS: HEMATOCRIT 33.4 % (42.0-52.0); HEMOGLOBIN 10.2 g/dL (14.0-18.0); MCH 28.3 PG (27-31); MCHC 30.5 g/dL (33-37); MCV 92.5 FL (81-99); MPV 10.8 FL (7.4-10.4); RBC 3.61 XMIL (4.7-6.1)
[2016-06-24 05:23] LABS: INR 2.51
[2016-06-24 05:44] LABS: ALBUMIN 2.5 g/dL (3.5-5.0); CALCIUM 8.3 mg/dL (8.8-10.2); MAGNESIUM 1.8 mg/dL (1.5-2.7); POTASSIUM 4.2 mmol/L (3.5-5.1); TOTAL BILIRUBIN 0.32 mg/dL (0.20-1.00); TOTAL PROTEIN 5.9 g/dL (6.3-8.3)
[2016-06-24] MEDS: HUMULIN R SUBQ SCH ×4 (06:02→20:06)
[2016-06-24] MEDS: CALTRATE 600 PO SCH ×3 (07:54→17:18)
[2016-06-24] MEDS: CORDARONE PO SCH ×4 (07:55→17:21)
[2016-06-24] MEDS: NORCO-5 PO PRN (08:02)
[2016-06-24] MEDS: ZOFRAN IV PRN (09:30)
--- NOTE | 2016-06-24 11:39 | PROGRESS NOTE ---
DATE: 06/24/2016 SUBJECTIVE: Patient notes that he is feeling a lot better this morning. Denies any palpitations. States his heart rate appears to have slowed down tremendously over the last hour or 2. Denies any chest pain. Denies any current palpitations. Denies any fevers, chills. Denies any GI or issues. OBJECTIVE: Vital signs: Temperature 98, pulse currently 60s, respiratory 20, BP 117/73, sat 97% on room air. General: Patient is awake, alert, oriented. He appears much more at ease this morning than he did yesterday. Denies any chest pains. HEENT: Normocephalic. Neck: Supple. CV: Irregular but much more rate controlled than yesterday's exam. Chest: Clear. Abdomen: Soft. Extremities: Moves all extremities. No edema. Neurologic: No changes. ASSESSMENT: 1. Atrial fibrillation. Currently he is much more rate controlled. His heart rate is in the mid 60s. Will continue metoprolol, Coreg, and amiodarone. We will continue to try to wean down and hopefully wean off his Cardizem drip. 2. Anemia. Hemoglobin and hematocrit are stable at 10 and 30. 3. Hypercoagulopathy. His INR is 2.5. Therefore, will stop his Lovenox and continue to follow his INRs. 4. Type 2 diabetes. 5. Metabolic encephalopathy has resolved. PLAN: Hopefully can wean down and potentially wean off his Cardizem drip. He currently is on 90 of Cardizem q.6 per cardiology p.o. as well as amiodarone and 50 of metoprolol q.6. Further orders as needed. cc: Eliot Bundy MD
[2016-06-24] MEDS: CARDIZEM 100 MG/NS 100 MG/100 ML IVPB IV SCH (17:17)
[2016-06-24] MEDS: COLACE PO SCH (20:05)
[2016-06-24] MEDS: COUMADIN PO SCH (20:05)
[2016-06-24] MEDS: MORPHINE IV PRN (20:13)
[2016-06-25] MEDS: CARDIZEM PO SCH ×4 (03:26→20:58)
[2016-06-25] MEDS: LOPRESSOR PO SCH ×4 (03:26→20:58)
[2016-06-25 05:17] LABS: INR 3.33; PROTIME 37.8 Seconds (9.2-11.7)
[2016-06-25 05:22] LABS: ALBUMIN 2.8 g/dL (3.5-5.0); CALCIUM 8.6 mg/dL (8.8-10.2); POTASSIUM 4.3 mmol/L (3.5-5.1)
[2016-06-25] MEDS: HUMULIN R SUBQ SCH ×4 (06:09→20:58)
--- NOTE | 2016-06-25 06:32 | EKG Report ---
Test Performed on : 06/23/2016 11:29:13 AM Test Reason : rhythm change Blood Pressure : / mmHG Vent. Rate : 092 BPM Atrial Rate : 264 BPM P-R Int : 000 ms QRS Dur : 118 ms QT Int : 414 ms P-R-T Axes : 000 -09 087 degrees QTc Int : 511 ms Atrial flutter. with variable AV block. Low voltage QRS Incomplete left bundle branch block Prolonged QT Abnormal ECG When compared with ECG of 20-JUN-2016 20:54, Vent. rate has decreased BY [address] elevation has replaced ST depression in Inferior leads Non-specific change in ST segment in Anterior leads T wave inversion no longer evident in Inferior leads Confirmed by Hayden GASTELUM, Sherman Sharma ([id number]) on 06/25/2016 8:09:25 AM
[2016-06-25] MEDS ORDERED: TIGHT: 0.2 ML/HR MISC PRN (07:07)
[2016-06-25] MEDS ORDERED: HEPARIN IV PRN (07:07)
[2016-06-25] MEDS ORDERED: NS 2,000 ML MISC PRN (07:07)
[2016-06-25] MEDS ORDERED: NS 2,000 ML ONE (08:39)
[2016-06-25] MEDS: CORDARONE PO SCH ×3 (08:44→17:14)
[2016-06-25] MEDS: CALTRATE 600 PO SCH ×3 (08:44→17:14)
--- NOTE | 2016-06-25 08:44 | PROGRESS NOTE ---
DATE: 06/25/2016 SUBJECTIVE: Mr. Gupta states that he is feeling much better. He would like to go home. He thinks his is missing him. He denies chest pain or increased work of breathing. OBJECTIVE: Vital Signs: His most recent vital signs, his temperature is 97.6 degrees, blood pressure 130/69, heart rate 110, respirations are 16. He remains on room air. Last recorded saturation is 96%. He has had 467 in, 575 out per void. Laboratory Data: This a.m., sodium 137, potassium 4.3, chloride is 95, CO2 24, BUN 59, creatinine 5.8, glucose 86, his anion gap is 18, calcium 8.6, phosphorus 5.3, albumin 2.3. White count 12.82, hemoglobin 10.2, hematocrit 33.4, with a platelet count of 319,000. Physical Examination: General: This is a 65-year-old, white male. He is resting in bed. He is in no acute distress. Skin: Warm and dry. HEENT: Normocephalic, atraumatic. Conjunctivae pale. He has TISH. Mucous membranes moist. Neck: Supple. Trachea midline. No JVD. Cardiovascular: He is regular rate and rhythm on the monitor, tachycardic with increased motion in movement. Lungs: Clear to auscultation anteriorly. Equal excursion on room air. Abdomen: Round, soft, nontender. Positive bowel sounds. Genitourinary: Not inspected. Minimal void with dialysis assist. Extremities: No edema. No clubbing or cyanosis. Neurological: Alert and oriented x3. ASSESSMENT AND PLAN: 1. End-stage renal disease. Patient is due for his routine dialysis treatment today. We will place him on a 2 K bath. We will dialyze him for 3.5 hours. We will attempt to pull him to his dry weight. 2. Atrial fibrillation with rapid ventricular response. Cardiology continues to monitor and it is mostly controlled. 3. Electrolytes. These are stable. 4. Acid-base balance. This is corrected. 5. Anemia. This is low but stable. I would to thank you for allowing us to follow with this patient. Seen, data reviewed, discussed with Fuad Castro on 06/25/16. I agree with the above assessment and plan of care. rg Dictated by RACHID Pierre for Son Rosales MD cc: RACHID Pierre MD [facility]
[2016-06-25] MEDS: CARDIZEM 100 MG/NS 100 MG/100 ML IVPB IV SCH ×2 (08:45→17:40)
--- NOTE | 2016-06-25 15:05 | PROGRESS NOTE ---
DATE: 06/25/2016 SUBJECTIVE: The patient is resting comfortably in bed. He states that he wants to go home. He in atrial fibrillation with a heart rate in the 110s. He is currently on 5 mg of Cardizem per hour. OBJECTIVE: Vital Signs: Temperature 97.5 degrees, blood pressure 108/66, heart rate 111, respiratory rate 21, O2 saturations 97% on room air. General: This is an elderly male, lying comfortably in bed in no acute distress. Head: Normocephalic, atraumatic. Heart: S1, S2 normal. Irregularly irregular rhythm. Lungs: Clear to auscultation bilaterally. No crackles. No rales. Abdomen: Positive bowel sounds. Soft, nontender, nondistended. Extremities: No edema. No cyanosis. No calf tenderness. Neurologic: The patient is alert and oriented x3. No focal neurologic deficits noted. LABS: INR 3.3, sodium 137, potassium 4.3, chloride 95, CO2 24, BUN 59, creatinine 5.8. Glucose 98. Phosphorus 5.3, albumin 2.8. ASSESSMENT AND PLAN: 1. Atrial fibrillation with rapid ventricular response. The patient remains on a Cardizem drip at 5 mg an hour. Further titration of the patient's cardiac medications, as per the chief radiation therapist. The patient's INR is therapeutic. We will hold today's warfarin dose. 2. End-stage renal disease. The patient is due for dialysis today. 3. Hypertension. Controlled. 4. Diabetes mellitus type 2. Continue on Humulin-R sliding scale. 5. Anemia of chronic disease. The patient's hemoglobin and hematocrit is stable. 6. Continue with physical therapy. cc: Tisha Liriano MD
[2016-06-25] MEDS: EPOGEN SUBQ SCH (17:38)
--- NOTE | 2016-06-25 18:24 | PROGRESS NOTE ---
DATE: 06/25/2016 SUBJECTIVE: Patient continues without chest discomfort or dyspnea. He remains in atrial flutter with heart rate 120 beats per minute on intravenous diltiazem drip. OBJECTIVE: Vital signs: Blood pressure 123/68, heart rate 118 and regular with ECG monitor showing atrial flutter, oxygen saturation 94% on room air. Neck: There is no significant JV distention. Chest: Clear to auscultation. Cardiac Exam: Reveals a regular tachycardia without appreciable murmur or gallop. There is no evidence of peripheral edema. LABORATORY DATA: Includes an INR of 3.33 (Coumadin held this evening). IMPRESSION: 1. Persistent atrial arrhythmias. Patient currently in atrial flutter with mild tachycardia on intravenous Cardizem. He has been on amiodarone for several days now and sinus rhythm has not returned. 2. End-stage renal disease. 3. Hypertension. 4. Type 2 diabetes mellitus. 5. Anemia chronic disease. RECOMMENDATIONS: 1. Continue current cardiovascular regimen. 2. Favor pursuit of transesophageal echocardiography/cardioversion in a.m. The rationale for this approach along with potential hazards were discussed with the patient and he wished to proceed. cc: Jeff Martinez MD
[2016-06-25] MEDS: MORPHINE IV PRN ×2 (19:06→23:46)
[2016-06-25] MEDS: COLACE PO SCH (20:58)
[2016-06-26] MEDS: CARDIZEM PO SCH ×2 (02:36→08:02)
[2016-06-26] MEDS: LOPRESSOR PO SCH ×4 (02:36→20:35)
[2016-06-26 05:10] LABS: INR 3.44; PROTIME 39.1 Seconds (9.2-11.7)
[2016-06-26 05:23] LABS: ALBUMIN 2.9 g/dL (3.5-5.0); CALCIUM 7.8 mg/dL (8.8-10.2); POTASSIUM 4.1 mmol/L (3.5-5.1)
[2016-06-26] MEDS: HUMULIN R SUBQ SCH ×4 (06:36→20:36)
[2016-06-26] MEDS: CALTRATE 600 PO SCH ×3 (08:02→17:25)
[2016-06-26] MEDS: CORDARONE PO SCH ×3 (08:02→17:25)
[2016-06-26] MEDS: CARDIZEM 100 MG/NS 100 MG/100 ML IVPB IV SCH (08:34)
--- NOTE | 2016-06-26 10:03 | EKG Report ---
Test Performed on : 06/26/2016 09:23:38 AM Test Reason : atrial flutter Blood Pressure : / mmHG Vent. Rate : 095 BPM Atrial Rate : 102 BPM P-R Int : 000 ms QRS Dur : 112 ms QT Int : 372 ms P-R-T Axes : 000 -03 109 degrees QTc Int : 467 ms Undetermined rhythm Incomplete left bundle branch block ST \T\ T wave abnormality, consider lateral ischemia Prolonged QT Abnormal ECG When compared with ECG of 23-JUN-2016 11:29, Current undetermined rhythm precludes rhythm comparison, needs review Nonspecific T wave abnormality now evident in Inferior leads Inverted T waves have replaced nonspecific T wave abnormality in Lateral leads Confirmed by Ramona GASTELUM, Favio Sharma ([id number]) on 06/28/2016 12:03:37 PM
[2016-06-26] MEDS ORDERED: AMIDATE ONE (10:08)
[2016-06-26] MEDS ORDERED: SODIUM CHLORIDE 0.9% 10 ML ONE (10:15)
[2016-06-26] MEDS ORDERED: XYLOCAINE 4% TOPICAL SOLUTION ONE (10:15)
[2016-06-26] MEDS ORDERED: HURRICAINE SPRAY (DOSE) ONE (10:15)
[2016-06-26] MEDS ORDERED: XYLOCAINE 2% VISCOUS ONE (10:15)
[2016-06-26] MEDS ORDERED: PIGGYBACK SET 7393 ONE (11:13)
[2016-06-26] MEDS ORDERED: 1/2 NS 500 ML ONE (11:13)
--- NOTE | 2016-06-26 11:19 | PROGRESS NOTE ---
DATE: 06/26/2016 SUMMARY: After topical lidocaine and intravenous conscious sedation per anesthesiology, I passed transesophageal echocardiographic probe into the patient's esophagus without difficulty. Transesophageal echocardiography was subsequently performed demonstratin. Aortic valve without structural abnormality or Doppler evidence of dysfunction. Mitral valve demonstrates sclerotic thickening involving the base of the posterior mitral leaflet of unclear etiology. There is mild centrally directed mitral regurgitation. Tricuspid valve without structural abnormality with mild tricuspid regurgitation. Pulmonic valve without structural abnormality. 2. Normal left ventricular chamber size with estimated left ejection fraction approximately 30% to 35% in setting of global hypokinesis. Left atrium is mildly enlarged. Right atrium, right ventricle are normal size with normal right ventricular systolic function. All 4 cardiac chambers, including left atrial appendage, appear free of intracardiac thrombus. 3. Interatrial septum appears intact. There is no evidence on color Doppler or intravenous agitated saline contrast study of interatrial shunting or intracardiac shunting. 4. Small circumferential pericardial effusion. 5. Descending thoracic aorta. Aortic root and aortic arch appear free of atheromata. 6. The patient in atrial flutter at time of study and MARY findings indicate no intracardiac thrombus. 7. Synchronized direct current cardioversion with 20 joules biphasic subsequent performed with conversion of patient from atrial flutter to sinus rhythm. The patient tolerated the procedure without apparent complications. Full report to follow. cc: Jeff Martinez MD
[2016-06-26] MEDS ORDERED: NON-FORMULARY BULK MED TOP PRN (11:28)
--- NOTE | 2016-06-26 13:55 | ECHO REPORT ---
ORDER DATE: 06/25/2016 PROCEDURE: Transesophageal echocardiography/cardioversion study. DATE OF STUDY: 06/25/2016. SUMMARY: After topical lidocaine to oropharynx, intravenous sedation was given by anesthesiology service. I subsequently passed transesophageal echocardiography probe into the esophagus without difficulty and performed a transesophageal echocardiography without difficulty. FINDINGS FOLLOWS: 1. Aortic valve is trileaflet and opens normally on 2-dimensional images. There is no Doppler evidence of aortic valve dysfunction. Mitral valve is abnormal in that there appears to be prominent sclerotic thickening of the base of the bookkeepers supervisor mitral leaflet. 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 Antral mitral leaflet appears normal. There is mild centrally-directed mitral regurgitation. Tricuspid valve is without structural abnormality with trace tricuspid regurgitation. Pulmonic valve is without structural abnormality. 2. Normal left ventricular chamber size with mild concentric left hypertrophy suggested. Estimated left ejection fraction approximately 40% in the setting of global hypokinesis with mild concentric left hypertrophy suggested. Estimated left ejection fraction is 40% in the setting of global hypokinesis. Left atrium is mildly enlarged. Right atrium and right ventricle are normal in size with normal right ventricular systolic function. All 4 cardiac chambers and left atrial appendage are free of intracardiac thrombus. 3. Interatrial septum appears intact and there is no evidence of interatrial shunting on color Doppler. Intravenous agitated saline contrast study demonstrates no evidence of intracardiac shunting. 4. Small circumferential pericardial effusion. 5. Descending thoracic aorta, aortic root and proximal ascending aorta appear free of atheromata. Patient subsequently underwent synchronized direct current cardioversion with 20 joules biphasic converting atrial fibrillation to sinus rhythm. There were no apparent complications. CONCLUSIONS: 1. 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 2. Mild mitral regurgitation. 3. Mild concentric left hypertrophy with estimated left ejection fraction 40%. 4. Mild left atrial enlargement. 5. All 4 cardiac chambers and left atrial appendage free of intracardiac thrombus. 6. Small circumferential pericardial effusion. 7. Successful cardioversion of atrial flutter to sinus rhythm. cc: Jeff Martinez MD
--- NOTE | 2016-06-26 14:16 | PROGRESS NOTE ---
DATE: 06/26/2016 TIME SEEN: 7:30. SUBJECTIVE: Mr. Gupta is resting quietly in bed. He is n.p.o. He is scheduled for cardioversion today. He denies chest pain or increased work of breathing. OBJECTIVE: His most recent vital signs, his temperature is 97.3, blood pressure 123/76, heart rate 105, respirations 20. He is on room air. Last recorded saturation 94%. He has had 679 in, 3150 out with 3 L on dialysis. LABS: This a.m., sodium 137, potassium 4.1, chloride 94, CO2 of 25, BUN 46, creatinine 5, glucose 88. Anion gap 18, calcium 7.8, phosphorus 4.5, albumin 2.9. Hemoglobin 10.2 on the 30th. PHYSICAL EXAM: General: This is a 65-year-old white male. He is currently resting in bed. He is in no acute distress. Skin: Warm and dry. HEENT: Normocephalic, atraumatic. Conjunctivae pale. He has TISH. Mucous membranes moist. Neck: Supple. Trachea midline. No JVD. Cardiovascular: Irregular rate and rhythm. He is tachycardic on the monitor. No murmur or gallop appreciated. Lungs: Clear to auscultation anteriorly. Equal excursion on room air. Abdomen: Round, soft, nontender. Positive bowel sounds. Genitourinary: Not inspected. Minimal void with dialysis assist. Extremities: No edema. No clubbing or cyanosis. AV fistula to the left forearm. Neurological: Alert and oriented x3. ASSESSMENT AND PLAN: 1. End-stage renal disease. Patient is due for his routine dialysis treatment in the a.m. Otherwise, no need for intervention today. 2. Atrial fibrillation with rapid ventricular rate. Cardiology is planning for cardioversion today, status post transesophageal echocardiogram. Patient continues on Cardizem drip. 3. Electrolytes and acid-base balance. These are stable. 4. Anemia. This remains low, but stable. I would like to thank you for allowing us to follow with this patient. Seen, data reviewed, discussed with Fuad Castro on 06/26/16. I agree with the above assessment and plan of care. rg Dictated by RACHID Pierre for Son Rosales MD cc: RACHID Pierre MD [facility]
--- NOTE | 2016-06-26 14:22 | EKG Report ---
Test Performed on : 06/26/2016 11:41:09 AM Test Reason : post cath Blood Pressure : / mmHG Vent. Rate : 071 BPM Atrial Rate : 071 BPM P-R Int : 272 ms QRS Dur : 120 ms QT Int : 420 ms P-R-T Axes : 057 -01 099 degrees QTc Int : 456 ms Sinus rhythm. with 1st degree AV block. Incomplete left bundle branch block T wave abnormality, consider lateral ischemia Abnormal ECG When compared with ECG of 26-JUN-2016 09:23, (Unconfirmed) Previous ECG has undetermined rhythm, needs review Nonspecific T wave abnormality now evident in Anterior leads Confirmed by Ramona GASTELUM, Favio Sharma ([id number]) on 06/28/2016 12:04:02 PM
[2016-06-26] MEDS: COLACE PO SCH (20:35)
[2016-06-26] MEDS: MORPHINE IV PRN (20:35)
--- NOTE | 2016-06-26 21:02 | PROGRESS NOTE ---
DATE: 06/26/2016 SUBJECTIVE: The patient is resting comfortably in bed. He has no complaints. OBJECTIVE: Vital Signs: Temperature 98.9 degrees, blood pressure 148/71, heart rate 76, respirations 12, O2 saturations 99% on room air. General: This is an elderly male, lying comfortably in bed, in no acute distress. Head: Normocephalic, atraumatic. Heart: S1, S2. Normal. Irregularly irregular rhythm. Lungs: Clear to auscultation bilaterally. No wheezing. No rales. No rhonchi. Abdomen: Positive bowel sounds. Soft, nontender, nondistended. Extremities: No edema. No cyanosis. No calf tenderness. Neurologic: The patient is alert and oriented x3. LABORATORY: INR 3.4, BUN 46, creatinine 5, glucose 219, potassium 4.1, albumin 2.9. ASSESSMENT AND PLAN: 1. Atrial flutter. The patient is scheduled to undergo cardioversion with transesophageal echocardiogram with cardioversion today. Further management as per the airport maintenance chief. INR is 3.4. 2. End-stage renal disease. Management as per the vp platforms. 3. Hypertension. Controlled. 4. Diabetes mellitus type 2. Continue on sliding scale insulin. 5. Continue with physical therapy. cc: Tisha Liriano MD MTDD
[2016-06-27] MEDS: LOPRESSOR PO SCH ×4 (02:00→20:16)
[2016-06-27] MEDS: MORPHINE IV PRN ×2 (02:05→09:05)
[2016-06-27 05:38] LABS: HEMATOCRIT 32.5 % (42.0-52.0); MCH 28.1 PG (27-31); MCHC 30.8 g/dL (33-37); MCV 91.3 FL (81-99); MPV 10.3 FL (7.4-10.4); RBC 3.56 XMIL (4.7-6.1)
[2016-06-27 05:57] LABS: INR 3.01; PROTIME 33.9 Seconds (9.2-11.7)
[2016-06-27 06:12] LABS: ALBUMIN 2.8 g/dL (3.5-5.0); CALCIUM 7.9 mg/dL (8.8-10.2); POTASSIUM 4.2 mmol/L (3.5-5.1)
[2016-06-27] MEDS ORDERED: TIGHT: 0.2 ML/HR MISC PRN (07:12)
[2016-06-27] MEDS ORDERED: HEPARIN IV PRN (07:12)
[2016-06-27] MEDS ORDERED: NS 2,000 ML MISC PRN (07:12)
[2016-06-27] MEDS: HUMULIN R SUBQ SCH ×4 (07:49→20:17)
--- NOTE | 2016-06-27 08:20 | PROGRESS NOTE ---
DATE: 06/27/2016 SUBJECTIVE: Mr. Gupta is resting quietly in bed. States that he is feeling well. Denies chest pain or increased work of breathing. OBJECTIVE: Vital Signs: His most recent vital signs are temperature 97.6 degrees, blood pressure 146/69, heart rate 75, respirations 20. He is on room air. Last recorded saturation 96%. Patient has recorded 840 in with 425 out. He is in need for hemodialysis today. Laboratory Data: This a.m., sodium 133, potassium 4.2, chloride is 91, CO2 25, BUN 61, creatinine 5.8, glucose 92. The patient has an anion gap of 17, calcium 7.9, phosphorus 5.4, albumin 2.8. White count 10.07, hemoglobin 10, hematocrit 32.5, with a platelet count of 372, 000. His prothrombin time is 33.9 with an INR of 3.01. Physical Examination: General: This is a 65-year-old, white male. He is currently resting in bed. He appears in no acute distress. Skin: Warm and dry. HEENT: Normocephalic, atraumatic. Conjunctivae are pale. He has TISH. Mucous membranes moist. Neck: Supple. Trachea midline. He has no JVD evident. Cardiovascular: Regular rate and rhythm. He has a soft systolic murmur. Lungs: Clear to auscultation anteriorly. Equal excursion. Remains on room air. Abdomen: Large, round, soft, nontender. Positive bowel sounds. Extremities: Inspected with minimal edema. No clubbing, or cyanosis. AV fistula to the left forearm is dry and intact. Neurological: Alert and oriented x2. ASSESSMENT AND PLAN: 1. End-stage renal disease. Patient is due for his routine dialysis treatment today. We will place him on a 2 K bath. He is to dialyze for 3.5 hours. We will attempt to pull him to his dry weight. 2. Electrolytes and acid-base balance. These remain stable with mild hyponatremia with correction on dialysis. 3. Atrial fibrillation with rapid ventricular response. Patient had a transesophageal echocardiogram with an electrical cardioversion. He appears to be in sinus rhythm on his monitor this morning. This is followed by cardiology. 4. Anemia. This remains stable. I would to thank you for allowing us to follow with this patient. Seen, data reviewed, discussed with Fuad Castro on 06/27/16. I agree with the above assessment and plan of care. rg Dictated by RACHID Pierre for Son Rosales MD cc: RACHID Pierre MD [facility]
[2016-06-27] MEDS: CALTRATE 600 PO SCH ×3 (09:00→16:29)
[2016-06-27] MEDS: CORDARONE PO SCH (09:00)
[2016-06-27] MEDS ORDERED: NS 2,000 ML ONE (11:34)
[2016-06-27] MEDS ORDERED: HEPARIN ONE (11:34)
[2016-06-27] MEDS ORDERED: DILANTIN PO SCH (14:00)
--- NOTE | 2016-06-27 14:07 | PROGRESS NOTE ---
DATE: 06/27/2016 SUBJECTIVE: The patient remains in normal sinus rhythm. He has no complaints at this time. He states that he wants to go home. OBJECTIVE: Vital Signs: Temperature 97.2 degrees, blood pressure 151/71, heart rate 82, respirations 16, O2 saturations 97% on room air. General: This is an elderly male, lying in bed, in no acute distress. Head: Normocephalic, atraumatic. Heart: S1, S2. Normal. Regular rate and rhythm. Lungs: Clear to auscultation bilaterally. Abdomen: Positive bowel sounds. Soft, nontender, nondistended. Extremities: No edema. No cyanosis. No calf tenderness. Neurologic: The patient is awake and alert. He is able to move all 4 extremities. LABORATORY DATA: White blood cell count 10, hemoglobin 10, hematocrit 32, platelets 372,000. INR 3, sodium 133, potassium 4.2, chloride 91, CO2 25, BUN 61. Creatinine 5.8, glucose 120, phosphorus 5.4, albumin 2.8. ASSESSMENT AND PLAN: 1. Atrial flutter status post MARY with cardioversion. The patient remains in normal sinus rhythm. We will await final recommendations for the patient's outpatient cardiac medications. The patient's INR is therapeutic. 2. End-stage renal disease. Management as per the communication equipment repairer. 3. Hypertension. Controlled. 4. Diabetes mellitus type 2. Continue on sliding scale insulin. 5. Continue with physical therapy. DISPOSITION: The patient can be discharged home once cleared by the flat screen worker. cc: Tisha Liriano MD
[2016-06-27 14:17] LABS: HEMOGLOBIN A1C 5.7 % (4.8-6.0)
--- NOTE | 2016-06-27 14:53 | PROGRESS NOTE ---
DATE: 06/27/2016 SUBJECTIVE: Patient continues without chest discomfort or dyspnea on room air. OBJECTIVE: Vital Signs: Blood pressure 151/71. Heart rate 82 and regular, with ECG monitor showing sinus rhythm. Neck: There is no significant jugular venous distention. Chest: Clear to auscultation. Cardiac: Reveals a regular rate and rhythm, without appreciable murmur or gallop. Extremities: There is no evidence of peripheral edema. LABORATORY DATA: INR 3.01. IMPRESSIONS: 1. Atrial fibrillation and atrial flutter. Patient continues in sinus rhythm on amiodarone following recent MARY cardioversion. Patient had had considerable difficulty with rate control. 2. End-stage renal disease. 3. Hypertension. 4. Type 2 diabetes mellitus. 5. Mitral valve disorder. RECOMMENDATIONS: 1. Continue amiodarone, but reduce dose to 200 mg twice daily with plans to ultimately decrease further to 2 mg once daily after a week. 2. Continue anticoagulation with warfarin. 3. Reasonable for patient to be discharged soon from a cardiovascular standpoint. He will need outpatient followup in approximately 10 days. I will see patient further in the hospital on an as-needed basis. cc: Jeff Martinez MD
[2016-06-27] MEDS: EPOGEN SUBQ SCH (17:54)
[2016-06-27] MEDS: COLACE PO SCH (20:16)
[2016-06-27] MEDS ORDERED: CORDARONE PO SCH (21:00)
[2016-06-27] MEDS ORDERED: COUMADIN PO SCH (21:00)
[2016-06-27 21:11] VITALS: BP 185/89
--- NOTE | 2016-07-05 09:29 | DISCHARGE SUMMARY ---
ADMISSION DATE: 06/14/2016 DISCHARGE DATE: 06/27/2016 FINAL DISCHARGE DIAGNOSES: 1. Atrial fibrillation. 2. Atrial flutter status post MARY with cardioversion. 3. End-stage renal disease. 4. Hypertension. 5. Diabetes mellitus type 2. 6. Mild protein calorie malnutrition. 7. Anemia of chronic disease. CONSULTATIONS REQUESTED DURING THIS HOSPITAL STAY: 1. Nephrology consultation with Dr. Rosales. 2. Cardiology consultation with Dr. Martinez. IMAGING PERFORMED DURING THIS HOSPITAL STAY: A 2-dimensional echocardiogram that revealed mild tricuspid regurgitation. Moderate left atrial enlargement. Mitral annular calcification. A well- circumscribed and spherical in shape structure adherent to the posterior mitral leaflet. EF of 55%. HOSPITAL COURSE: Mr. Gupta is a 65-year-old male with a history of multiple medical problems, who presented to the ER with generalized pain. The patient admitted at that time that he had not been to dialysis in quite some time. Also the patient was noted to be volume overloaded. The patient was admitted to the hospitalist service and cardiology as well as nephrology was consulted. The patient was noted to be complaining of nausea and vomiting so GI was consulted. The patient underwent an EGD on June 15 that revealed hemorrhagic gastritis secondary to uremia. The patient was dialyzed on a regular basis at the discretion of the fare collector over the course of the hospital stay. The patient then was noted to be in atrial fibrillation with RVR so cardiology was consulted. The patient was started on Cardizem for rate control and also metoprolol was added and the patient was started on heparin for anticoagulation. The patient's medications were titrated as much as possible. However, the patient remained in atrial fibrillation and then eventually converted to atrial flutter. It was decided that the patient would benefit from a MARY with cardioversion. This was performed on June 25. Following the MARY and cardioversion the patient was noted to be in normal sinus rhythm. The patient was placed on Coumadin for anticoagulation purposes. The patient's mentation improved and he remained in normal sinus rhythm on the day of discharge. The patient was cleared for discharge home on June 27, 2016. DISCHARGE MEDICATIONS: 1. Amiodarone 200 mg p.o. twice a day. 2. Lopressor 50 mg p.o. every 6 hours. 3. Warfarin 3 mg p.o. at bedtime. 4. Omeprazole 40 mg p.o. daily. 5. Dilantin 100 mg p.o. daily. 6. [place] 7.5/325 one tablet oral every 6 hours p.r.n. for pain. DISCHARGE DIET: Renal diet. ACTIVITY: As tolerated. FOLLOWUP INSTRUCTIONS: The patient will need to follow up for his dialysis sessions as scheduled. The patient will need to follow up with Dr. Martinez in 2 weeks. cc: Tisha Liriano MD
== END 2016-06-27 20:50 | disposition home or self-care (01) ==
LOC: P.ED 09:10 → SUATTDRO 13:02 → 3N 13:02 → 3S 13:04
PROVIDERS: ATTEND Internal Medicine